=== PATIENT | female | born 1990 | race Caucasian/White ===

== ENCOUNTER 2019-06-21 10:53 | Emergency (ER) | payer OTHER ==
[2019-06-21 11:00] VITALS: BMI 23.0
[2019-06-21] MEDS ORDERED: SODIUM CHLORIDE 1,823 ML IV ONE (11:31)
[2019-06-21] MEDS ORDERED: ACETAMINOPHEN 1000 MG/100 ML VIAL (NON FORMULARY) IVPB ONE (11:33)
[2019-06-21] MEDS ORDERED: ACETAMINOPHEN INJECTION 100 ML IVPB ONE (11:50)
--- NOTE | 2019-06-21 11:51 | PDOC ---
History of Present Illness - General Chief Complaint: Pain, Acute Stated Complaint: HEADACHE Time Seen by Provider: 06/21/19 11:27 - History of Present Illness Initial Comments: 06/21/19 11:50 HPI 28 year with no significant past medical history presents with sudden onset 4 days of cramping LUQ and LLQ abdominal pain radiating to the L flank associated with nonbloody diarrhea and now with 2 days of bilateral temporal headache rated10/10 associated with dizziness and worse with bright lights and loud noises. Denies N/V/C, denies cough, congestion, chest pain, shortness of breath , vaginal discharge, dysuria, hematuria The patient is A0, she is sexually active with her , has an IUD. PMHX: anal pinworms PSHC: PCP: none recently moved, previously cared for at [facility] GENERAL/CONSTITUTIONAL: No fever or chills. No weakness. HEAD, EYES, EARS, NOSE AND THROAT: No change in vision. No ear pain or discharge. No sore throat. CARDIOVASCULAR: No chest pain or shortness of breath RESPIRATORY: No cough, wheezing, or hemoptysis. GASTROINTESTINAL: No nausea, vomiting, diarrhea or constipation. GENITOURINARY: No dysuria, frequency, or change in urination. MUSCULOSKELETAL: No joint or muscle swelling or pain. No neck or back pain. SKIN: No rash NEUROLOGIC: No headache, vertigo, loss of consciousness, or change in strength/ sensation. ENDOCRINE: No increased thirst. No abnormal weight change HEMATOLOGIC/LYMPHATIC: No anemia, easy bleeding, or history of blood clots. ALLERGIC/IMMUNOLOGIC: No hives or skin allergy. PE GENERAL: Awake, alert, and fully oriented, in no acute distress HEAD: No signs of trauma, normocephalic, atraumatic EYES: PERRLA, EOMI, sclera anicteric, conjunctiva clear ENT:oropharynx clear without exudates. Moist mucosa NECK: Normal ROM, supple LUNGS: No distress, speaks full sentences, clear to auscultation bilaterally HEART: Regular rate and rhythm, normal S1 and S2, no murmurs, rubs or gallops, peripheral pulses normal and equal bilaterally. ABDOMEN: Soft, LLQ > LUQ, No guarding, no rebound. No masses BACK: L CVA tenderness EXTREMITIES : Normal inspection, Normal range of motion, no edema. No clubbing or cyanosis. NEUROLOGICAL: Cranial nerves II through XII grossly intact. Normal speech, normal gait, no focal sensorimotor deficits SKIN: Warm, Dry, normal turgor, no rashes or lesions noted PELVIC: mucopurulent discharge, no cervical motion tenderness, no adnexal mass MDM 28 year with no significant past medical history presents with 4 days of cramping LUQ and LLQ abdominal pain radiating to the R flank associated with nonbloody diarrhea and now with 2 days of bilateral temporal headache rated10/ 10 associated with dizziness and worse with bright lights and loud noises. DDX including but not limited to: uti vs pyelo vs infected nephrolithiasis r/o ectopic vs toa W/U: - cbc, cmp, lactic, blood culture, coags, ua TX: - tylenol ivf ED Course: wbc 14 urine with + wbc and leuk esterase CT AP to r/o infected stone CT negative pelvic with discharge treat for pyelo and pid Patient agrees to plan and f/u instructions strict return precautions patient expresses understanding Doretha Warner, PGY2 Emergency Medicine Past History - Past Medical History Allergies/Adverse Reactions: Allergies Allergy/AdvReac Type Severity Reaction Status Date / Time shellfish derived Allergy Verified 06/22/19 12:22 Home Medications: Ambulatory Orders Cephalexin Monohydrate [Keflex -] 500 mg PO Q6H 14 Days #56 capsule 06/21/19 Doxycycline Hyclate 100 mg PO BID 14 Days #28 tablet 06/21/19 COPD: No - Suicide/Smoking/Psychosocial Hx Smoking History: Never smoked *Physical Exam - Vital Signs Last Vital Signs Temp Pulse Resp BP Pulse Ox 102.7 F H 100 H 16 108/52 L 96 06/21/19 10:56 06/21/19 10:56 06/21/19 10:56 06/21/19 10:56 06/21/19 10:56 ED Treatment Course - LABORATORY CBC & Chemistry Diagram: 06/21/19 11:39 06/21/19 11:39 - RADIOLOGY Radiology Studies Ordered: Category Date Time Status CHEST X-RAY PORTABLE* [RAD] Stat Radiology 06/21/19 11:31 Ordered *DC/Admit/Observation/Transfer Diagnosis at time of Disposition: Pyelonephritis, PID (acute pelvic inflammatory disease) - Discharge Dispostion Disposition: HOME Condition at time of disposition: Stable Decision to Admit order: No - Prescriptions Prescriptions: Cephalexin Monohydrate [Keflex -] 500 mg PO Q6H 14 Days #56 capsule Doxycycline Hyclate 100 mg PO BID 14 Days #28 tablet - Referrals - Patient Instructions Printed Discharge Instructions: DI for Kidney Infection Additional Instructions: You were seen in the ED for complaints of lower abdominal pain. In the ED you were evaluated with labwork and imaging. Your results and exam were significant for urinary tract infection and cervical discharge There does not appear to be an acute need for immediate hospitalization. You are advised to follow up with your Primary Care Physician within 1 week. You were given a prescription for Keflex and Doxycycline to be taken as prescribed. Return to the ED immediately if you experience worsening abdominal pain, back pain, nausea, vomiting or worsening fever. - Post Discharge Activity
[2019-06-21 12:24] LABS: BASO % 0.1 % (0-2.0); HEMOGLOBIN 11.7 GM/dL (10.7-15.3); LYMPH % 7.1 % (8-40); MCH 27.3 pg (25.7-33.7); MCHC 32.5 g/dl (32.0-36.0); MEAN CELL VOLUME 83.9 fl (80-96); MEAN PLT VOLUME 8.3 fl (7.5-11.1); NEUT % 86.8 % (42.8-82.8); PLATELET COUNT 251 K/MM3 (134-434); RBC 4.29 M/mm3 (3.60-5.2); RDW 15.2 % (11.6-15.6); WHITE BLOOD COUNT 14.1 K/mm3 (4.0-10.0)
[2019-06-21 12:28] LABS: HYALINE CASTS 26 /lpf (0-8); PH,URINE 7.5 (5.0-8.0); URINE APPEARANCE CLOUDY; URINE BACTERIA 415.3 /hpf (NEGATIVE); URINE BILIRUBIN NEGATIVE (NEGATIVE); URINE COLOR YELLOW; URINE GLUCOSE (UA) NEGATIVE (NEGATIVE); URINE KETONE 2+ (NEGATIVE); URINE LEUK ESTERASE 2+ (NEGATIVE); URINE NITRITE NEGATIVE (NEGATIVE); URINE PROTEIN 1+ (NEGATIVE); URINE RBC 7 /hpf (0-4); URINE WBC 63 /hpf (0-5)
[2019-06-21 12:35] LABS: INR 1.5 (0.83-1.09); PROTHROMBIN TIME (PATIENT) 17.8 SEC (9.7-13.0)
[2019-06-21 12:38] LABS: ACTIVATED PTT 36.1 SECONDS (25.2-36.5)
--- NOTE | 2019-06-21 12:55 | EKG ---
Test Reason : Blood Pressure : / mmHG Vent. Rate : 095 BPM Atrial Rate : 095 BPM P-R Int : 136 ms QRS Dur : 076 ms QT Int : 318 ms P-R-T Axes : 068 087 049 degrees QTc Int : 399 ms NORMAL SINUS RHYTHM NORMAL ECG NO PREVIOUS ECGS AVAILABLE Confirmed by MD Dariana, Ramses ([id number]) on 06/21/2019 12:55:25 PM Referred By: Confirmed By:Ramses Westbrook MD
[2019-06-21 12:59] LABS: ALBUMIN 3.5 g/dl (3.4-5.0); BILIRUBIN,TOTAL 0.3 mg/dL (0.2-1); BLOOD UREA NITROGEN 11.3 mg/dL (7-18); CALCIUM 8.6 mg/dL (8.5-10.1); CREATININE 0.8 mg/dL (0.55-1.3); POTASSIUM 3.9 mmol/L (3.5-5.1); TOT PROT 7.3 g/dl (6.4-8.2)
--- NOTE | 2019-06-21 13:44 | PDOC ---
Documentation entered by Kerline Gupta SCRIBE, acting as scribe for Marlo Lamar MD. Marlo Lamar MD: This documentation has been prepared by the Alonso mendoza Xhesika, SCRIBE, under my direction and personally reviewed by me in its entirety. I confirm that the documentation accurately reflects all work, treatment, procedures, and medical decision making performed by me. Attending Attestation - Resident Resident Name: Doretha Warner - ED Attending Attestation I have performed the following: I have examined & evaluated the patient, The case was reviewed & discussed with the resident, I agree w/resident's findings & plan, Exceptions are as noted - HPI HPI: 06/21/19 12:29 The patient is a 28 year old female with a significant past medical history of anal pinworms who presents to the ED with 4 days of LUQ and LLQ abdominal cramping. The patient states the pain radiates to her L lower flank and is associated with fever, nb diarrhea, 2 days of 10/10 headache and dizziness worsened with bright lights and loud sounds. Patient denies any recent traveling. The patient notes she is A0, is sexually active with her , has an IUD. The patient denies chest pain, shortness of breath. Denies chills, nausea, vomiting, and constipation. Denies dysuria, frequency, urgency and hematuria. Allergies: NKDA. shellfish derived. Past surgical history: - Physicial Exam PE: 06/21/19 12:30 Vitals: Triage Vital signs reviewed General Appearance: no acute distress, well nourished well developed, Head: Atraumatic, normocephalic Neck: Supple;No Nuchal rigidity Chest Wall: Nontender Cardiac: Regular rate and rhythm, no murmurs, no rubs, no gallops, Lungs: Clear to auscultation bilateral, good air movement bilaterally, Abdomen: (+) LLQ abdominal pain. Soft, nondistended, normal bowel sounds Extremities: Full range of motion to all extremities, no cyanosis, clubbing, or edema Skin: Warm and dry, no rashes or lesions, no petechiae Neuro: AOX3; Cranial Nerves 2-12 grossly c intact, Strength intact to all extremities, Sensation intact to all extremities, gait normal Psych: normal mood, normal affect - Medical Decision Making 06/21/19 17:10 The patient is a 28 year old female with a significant past medical history of anal pinworms who presents to the ED with 4 days of LUQ and LLQ abdominal cramping. The patient states the pain radiates to her L lower flank and is associated with fever, nb diarrhea, 2 days of 10/10 headache and dizziness worsened with bright lights and loud sounds. Patient denies any recent traveling. Fever and mild suprapubic discomfort Some low back discomfort Urinalysis positive consistent with UTI likely early pyelonephritis patient well -appearing tolerating fluids able to tolerate medications a CT was ordered to rule out a kidney stone which was negative for stone hydro-or acute other pathology We'll give 1 dose IV ceftriaxone here in the emergency department and discharged on 10-14 day course of Keflex Findings, the need for follow-up and strict return instructions discussed with patient.
[2019-06-21] MEDS ORDERED: CEFTRIAXONE 1 GM/50 ML BAG ONE (16:27)
[2019-06-21] MEDS ORDERED: ACETAMINOPHEN 325 MG TABLET (FP) PO ONE (16:35)
[2019-06-21] MEDS ORDERED: ACETAMINOPHEN 325 MG TABLET (FP) ONE (16:39)
[2019-06-21] MEDS ORDERED: METOCLOPRAMIDE HCL INJECTION 10 MG/2 ML VIAL IVPUSH ONE (17:56)
[2019-06-21] MEDS ORDERED: SODIUM CHLORIDE 1,000 ML IV SCH (18:00)
[2019-06-21] MEDS ORDERED: METOCLOPRAMIDE HCL INJECTION 10 MG/2 ML VIAL ONE (18:45)
[2019-06-21 20:30] VITALS: BP 98/57; PULSE 99; TEMP 100.2
--- NOTE | 2019-06-22 08:47 | PDOC ---
Patient Follow-up (Call Back) - Post ED Follow - Up Condition at time of discharge: Stable Disposition at time of original discharge: HOME Reason for Call Back: Abnwl. Microbiology Signs/Symptoms Improved: Yes (headache, weakness) - Disposition Additional Instructions/Notes: Recieved call from Jannette in [facility] who reports + blood culture results. Patient has gram negative bacillus in aerobic bottle and gram positive cocci in chains in anerobic bottle. Patient called at home and informed of results. Patient states she is experiencing headaches and weakness at present and is taking keflex and doxycycline as prescribed. She was informed to return to emergency room today for further evaluation, she states understanding and states she will return.
== END 2019-06-21 21:10 | disposition home or self-care (01) ==
LOC: JER 10:53
PROC: 3E0337Z Introduction of Electrolytic and Water Balance Substance into Peripheral Vein, Percutaneous Approach (ICD-10-PCS; principal; 2019-06-21)
PROC: 3E033GC Introduction of Other Therapeutic Substance into Peripheral Vein, Percutaneous Approach (ICD-10-PCS; 2019-06-21)
PROC: 3E03329 Introduction of Other Anti-infective into Peripheral Vein, Percutaneous Approach (ICD-10-PCS; 2019-06-21)
PROC: 3E03329 Introduction of Other Anti-infective into Peripheral Vein, Percutaneous Approach (ICD-10-PCS; 2019-06-21)
DX: N73.9 Female pelvic inflammatory disease, unspecified (principal); N12 Tubulo-interstitial nephritis, not specified as acute or chronic
CPT/HCPCS: 36415; 71045-TC-FY; 74176-TC; 80053; 81003; 83605; 84703; 85025; 85610; 85730; 87040; 87086; 87186; 93005; 93010; 99283-25; J0131; J7030

== ENCOUNTER 2019-06-22 12:13 | Inpatient (IN) | payer OTHER ==
--- NOTE | 2019-06-22 13:49 | PDOC ---
*Physical Exam - Vital Signs Last Vital Signs Temp Pulse Resp BP Pulse Ox 100.7 F H 92 H 18 99/57 L 99 06/22/19 12:22 06/22/19 12:22 06/22/19 12:22 06/22/19 12:22 06/22/19 12:22 - Physical Exam Comments: 06/22/19 13:48 The patient was examined by [ERIC Will] under my direct supervision. I personally evaluated the patient. I concur with the above findings and the plan of care. ED Treatment Course - LABORATORY CBC & Chemistry Diagram: 06/22/19 14:10 06/22/19 14:10 *DC/Admit/Observation/Transfer Diagnosis at time of Disposition: Pyelonephritis, Sepsis - Discharge Dispostion Condition at time of disposition: Stable - Referrals - Patient Instructions - Post Discharge Activity
[2019-06-22] MEDS ORDERED: CEFTRIAXONE 1 GM in DEXTROSE 5%-WATER - 100 ML IVPB ONE ×2 (13:59→16:33)
[2019-06-22] MEDS ORDERED: SODIUM CHLORIDE 1,000 ML IV STA (13:59)
[2019-06-22] MEDS ORDERED: ACETAMINOPHEN 1000 MG/100 ML VIAL (NON FORMULARY) IVPB ONE (14:06)
[2019-06-22] MEDS ORDERED: ONDANSETRON 4 MG/2 ML VIAL IVPUSH ONE (14:06)
[2019-06-22] MEDS ORDERED: CEFTRIAXONE 1 GM/50 ML BAG ONE ×2 (14:20→17:09)
[2019-06-22] MEDS ORDERED: ONDANSETRON 4 MG/2 ML VIAL ONE (14:20)
[2019-06-22] MEDS ORDERED: ACETAMINOPHEN INJECTION 100 ML IVPB ONE (14:20)
[2019-06-22 14:49] LABS: ALBUMIN 3.3 g/dl (3.4-5.0); BILIRUBIN,TOTAL 0.4 mg/dL (0.2-1); CALCIUM 8.3 mg/dL (8.5-10.1); CREATININE 0.6 mg/dL (0.55-1.3); POTASSIUM 3.9 mmol/L (3.5-5.1); TOT PROT 7.2 g/dl (6.4-8.2)
--- NOTE | 2019-06-22 15:06 | PDOC ---
History of Present Illness - General Chief Complaint: Pain Stated Complaint: REVISIT Time Seen by Provider: 06/22/19 13:41 History Source: Patient Exam Limitations: No Limitations Past History - Past Medical History Allergies/Adverse Reactions: Allergies Allergy/AdvReac Type Severity Reaction Status Date / Time shellfish derived Allergy Verified 06/22/19 12:22 Home Medications: Ambulatory Orders Cephalexin Monohydrate [Keflex -] 500 mg PO Q6H 14 Days #56 capsule 06/21/19 Doxycycline Hyclate 100 mg PO BID 14 Days #28 tablet 06/21/19 COPD: No - Suicide/Smoking/Psychosocial Hx Smoking History: Never smoked Hx Alcohol Use: No Drug/Substance Use Hx: No *Physical Exam - Vital Signs Last Vital Signs Temp Pulse Resp BP Pulse Ox 100.7 F H 92 H 18 99/57 L 99 06/22/19 12:22 06/22/19 12:22 06/22/19 12:22 06/22/19 12:22 06/22/19 12:22 - Physical Exam General Appearance: No: Apparent Distress Respiratory/Chest: positive: Lungs Clear, Normal Breath Sounds. negative: Respiratory Distress Cardiovascular: positive: Regular Rhythm, Regular Rate, S1, S2. negative: Murmur Gastrointestinal/Abdominal: positive: Normal Bowel Sounds, Soft. negative: Tender, Distended, Guarding, Rebound Musculoskeletal: positive: CVA Tenderness (L) (mild). negative: CVA Tenderness (R) Integumentary: positive: Normal Color Neurologic: positive: Alert, Normal Mood/Affect ED Treatment Course - LABORATORY CBC & Chemistry Diagram: 06/22/19 14:10 06/22/19 14:10 - ADDITIONAL ORDERS Additional order review: Laboratory Results 06/22/19 06/22/19 14:10 14:10 Sodium 140 Potassium 3.9 Chloride 108 H Carbon Dioxide 24 Anion Gap 7 L BUN 10.0 Creatinine 0.6 Est GFR (CKD-EPI)AfAm 143.77 Est GFR (CKD-EPI)NonAf 124.04 Random Glucose 93 Lactic Acid 0.8 Calcium 8.3 L Total Bilirubin 0.4 AST 15 ALT 24 Alkaline Phosphatase 55 Total Protein 7.2 Albumin 3.3 L - Medications Given in the ED: ED Medications Discontinued Medications Generic Name Dose Route Start Last Admin Trade Name Freq PRN Reason Stop Dose Admin Ceftriaxone Sodium 1 gm/ 100 mls @ 200 mls/hr 06/22/19 13:59 06/22/19 14:49 Dextrose IVPB 06/22/19 14:28 200 mls/hr ONCE ONE Administration Medical Decision Making - Medical Decision Making 28 y/o F with no sig pmh was called back to ED for positive blood cultures. Patient was seen in ED yesterday for L sided abdominal pain, slight dysuria, SOLIS and fever. Patient had labs, CXR and CT A/P done. CXR and CT A/P were negative for acute findings. Urine was positive for infection. Patient was given dose of Ceftriaxone yesterday and sent home on Keflex for possible pyelonephritis. Patient states she took the meds twice today but threw it out. Also mentions having fever at home as well. States abdominal pain is better but still with headache. Endorses mild Denies cough, sob, cp, diarrhea, hematuria. Aerobic bottle with Gram neg bacilli Anaerobic bottle with gram positive cocci Urine culture also with lactose fermenting gram neg bacilli Concern for possible contamination given different organisms in blood cultures However, also concern for possible sepsis from pyelo Labs, repeat blood and urine cultures drawn Given IVF and IV Ceftriaxone Plan to admit 06/22/19 15:07 Patient feeling better on reassessment Patient to be admitted 06/22/19 15:47 *DC/Admit/Observation/Transfer Diagnosis at time of Disposition: Pyelonephritis Sepsis Qualifiers: Sepsis type: sepsis due to unspecified organism Sepsis acute organ dysfunction status: without acute organ dysfunction Qualified Code(s): A41.9 - Sepsis, unspecified organism - Discharge Dispostion Condition at time of disposition: Stable Decision to Admit order: Yes - Referrals - Patient Instructions - Post Discharge Activity
[2019-06-22 15:17] LABS: EPI CELLS 10.7 /HPF (0-5/HPF); HYALINE CASTS 11 /lpf (0-8); URINE APPEARANCE CLEAR; URINE BACTERIA 1.4 /hpf (NEGATIVE); URINE BILIRUBIN NEGATIVE (NEGATIVE); URINE COLOR YELLOW; URINE GLUCOSE (UA) NEGATIVE (NEGATIVE); URINE KETONE 3+ (NEGATIVE); URINE LEUK ESTERASE TRACE (NEGATIVE); URINE NITRITE NEGATIVE (NEGATIVE); URINE PROTEIN 1+ (NEGATIVE); URINE RBC 8 /hpf (0-4); URINE UROBILINOGEN 0.2 mg/dL (0.2-1.0); URINE WBC 10 /hpf (0-5)
[2019-06-22 15:26] LABS: BASO % 0.1 % (0-2.0); EOS % 0.1 % (0-4.5); HEMATOCRIT 34.8 % (32.4-45.2); HEMOGLOBIN 11.4 GM/dL (10.7-15.3); LYMPH % 9.4 % (8-40); MCH 27.6 pg (25.7-33.7); MCHC 32.9 g/dl (32.0-36.0); MEAN CELL VOLUME 83.8 fl (80-96); MEAN PLT VOLUME 8.7 fl (7.5-11.1); MONO % 7.4 % (3.8-10.2); PLATELET COUNT 221 K/MM3 (134-434); RBC 4.15 M/mm3 (3.60-5.2); RDW 15.3 % (11.6-15.6); WHITE BLOOD COUNT 11.7 K/mm3 (4.0-10.0)
[2019-06-22] MEDS ORDERED: ONDANSETRON 4 MG/2 ML VIAL IVPUSH PRN (16:31)
[2019-06-22] MEDS ORDERED: IBUPROFEN 800 MG/8 ML IJ IVPB ONE (16:33)
--- NOTE | 2019-06-22 16:36 | HP ---
CHIEF COMPLAINT: dysuria PCP: none HISTORY OF PRESENT ILLNESS: This is a 28 y/o F with no PMH who presents to the ED with dysuria, fevers, chills after receiving a phone call from SALES REPRESENTATIVE in ED regarding her positive UA Cx results and BC results. She had been in the ED yesterday for the same complaints, given 1g ceftriaxone and sent home on ceflex and doxycycline but threw it up right after taking them. Pt endorses having fevers (101 temp), chills, dysuria, increased urgency, frequency for around a week associated with Lt sided CVA dull tenderness (2/10 pain), LLQ sharp abdominal pain (6/10 pain) without any radiation. Pt underwent a pelvic exam in the ED yesterday in which she did not have any adnexal tenderness or cervical motion tenderness. Pt denies any hx of UTI's. Pt has an IUD in place and negative for tests, pt states she is sexually active with only her . Pt admits to also having bitemporal headache associated with photophobia, slight dizziness, no nausea, vomiting, neck stiffness, or vertigo like symptoms associated. Pt has had SOLIS's since her two yrs ago and they were associated with photophobia in the past as well. ER course was notable for: (1) CT abd pelvis: negative for stones, hydronephrosis, or pyelo/cystitis but has ovarian cysts with minimal free fluid likely physiologic. (2) UA leuk est trace, 10 wbc's, nitrites negative, 3+ketones, 1+blood, 1+ protein (3) CXR negative, 14.7 ->11.7 wbc Recent Travel: none PAST MEDICAL HISTORY: none PAST SURGICAL HISTORY: (2009), Social History: Smoking:none Alcohol:none Drugs: none Family History: none Allergies shellfish derived Allergy (Verified 06/22/19 12:22) severe anaphylaxis associated. HOME MEDICATIONS: Home Medications Medication Instructions Recorded Cephalexin Monohydrate [Keflex -] 500 mg PO Q6H 14 Days #56 capsule 06/21/19 Doxycycline Hyclate 100 mg PO BID 14 Days #28 tablet 06/21/19 REVIEW OF SYSTEMS Negative except in HPI PHYSICAL EXAMINATION Vital Signs - 24 hr 06/22/19 06/22/19 12:22 16:02 Temperature 100.7 F H 98.2 F Pulse Rate 92 H Pulse Rate [ 92 H Apical] Respiratory 18 Rate Blood Pressure 99/57 L Blood Pressure 110/72 [Left Arm] O2 Sat by Pulse 99 Oximetry (%) GENERAL: Awake, alert, and fully oriented, in no acute distress. HEAD: Normal with no signs of trauma, severe acne on face. EARS, NOSE, THROAT: Moist mucous membranes. NECK: Normal range of motion, supple without lymphadenopathy, JVD, or masses. LUNGS: Breath sounds equal, clear to auscultation bilaterally. No wheezes, and no crackles. No accessory muscle use. HEART: Regular rate and rhythm, normal S1 and S2 without murmur, rub or gallop. ABDOMEN: Soft, tender to palpation in LLQ, LMQ, negative rovsing/mcburneys/ murphys sign, suprpaubic tenderness, non-distended, normoactive bowel sounds, no guarding, no rebound, no masses. MUSCULOSKELETAL: Lt CVA tenderness. LOWER EXTREMITIES: 2+ pulses, warm, well-perfused. No calf tenderness. No peripheral edema. NEUROLOGICAL: Cranial nerves II-XII intact. Normal speech. Normal gait. PSYCHIATRIC: Cooperative. Good eye contact. Appropriate mood and affect. SKIN: Warm, dry, no rashes or lesions noted. Laboratory Results - last 24 hr 06/22/19 06/22/19 06/22/19 14:10 14:10 14:10 WBC 11.7 H RBC 4.15 Hgb 11.4 Hct 34.8 MCV 83.8 MCH 27.6 MCHC 32.9 RDW 15.3 Plt Count 221 MPV 8.7 Absolute Neuts (auto) 9.7 H Neutrophils % 83.0 H Lymphocytes % 9.4 D Monocytes % 7.4 Eosinophils % 0.1 D Basophils % 0.1 Nucleated RBC % 0 Sodium 140 Potassium 3.9 Chloride 108 H Carbon Dioxide 24 Anion Gap 7 L BUN 10.0 Creatinine 0.6 Est GFR (CKD-EPI)AfAm 143.77 Est GFR (CKD-EPI)NonAf 124.04 Random Glucose 93 Lactic Acid 0.8 Calcium 8.3 L Total Bilirubin 0.4 AST 15 ALT 24 Alkaline Phosphatase 55 Total Protein 7.2 Albumin 3.3 L Urine Color Urine Appearance Urine pH Ur Specific [place] Urine Protein Urine Glucose (UA) Urine Ketones Urine Blood Urine Nitrite Urine Bilirubin Urine Urobilinogen Ur Leukocyte Esterase Urine WBC (Auto) Urine RBC (Auto) Urine Casts (Auto) U Epithel Cells (Auto) Urine Bacteria (Auto) 06/22/19 14:30 WBC RBC Hgb Hct MCV MCH MCHC RDW Plt Count MPV Absolute Neuts (auto) Neutrophils % Lymphocytes % Monocytes % Eosinophils % Basophils % Nucleated RBC % Sodium Potassium Chloride Carbon Dioxide Anion Gap BUN Creatinine Est GFR (CKD-EPI)AfAm Est GFR (CKD-EPI)NonAf Random Glucose Lactic Acid Calcium Total Bilirubin AST ALT Alkaline Phosphatase Total Protein Albumin Urine Color Yellow Urine Appearance Clear Urine pH 6.0 Ur Specific [place] 1.020 Urine Protein 1+ H Urine Glucose (UA) Negative Urine Ketones 3+ H Urine Blood 1+ H Urine Nitrite Negative Urine Bilirubin Negative Urine Urobilinogen 0.2 Ur Leukocyte Esterase Trace Urine WBC (Auto) 10 Urine RBC (Auto) 8 Urine Casts (Auto) 11 U Epithel Cells (Auto) 10.7 Urine Bacteria (Auto) 1.4 ASSESSMENT/PLAN: This is a 28 y/o F with no PMH who presents to the ED with dysuria, fevers, chills after receiving a phone call from SALES REPRESENTATIVE in ED regarding her UA Cx results and BC results. #Sepsis 2/2 Acute pyelonephritis - CVA tenderness on exam, 11.7 wbc initially 14.7 - already received 2g of ceftriaxone - will c/w ceftriaxone 2g - NS @75mL - ID Dr Forrest consulted - repeat UA Cx's and BC's results pending #Headache - given hx of SOLIS's probably migraine - IV motrin 1 dose given for pain management - zofran 4mg q6h PRN for nausea #FEN - NS @75 mL - monitor lytes - regular diet Dispo: admitted to med surg DVT PPX: lovenox 40mg SQ [facility] Visit type - Emergency Visit Emergency Visit: Yes ED Registration Date: 06/22/19 Care time: The patient presented to the Emergency Department on the above date and was hospitalized for further evaluation of their emergent condition. - New Patient This patient is new to me today: Yes Date on this admission: 06/22/19 - Critical Care Critical Care patient: No ATTENDING PHYSICIAN STATEMENT I saw and evaluated the patient. I reviewed the resident's note and discussed the case with the resident. I agree with the resident's findings and plan as documented. SUBJECTIVE: OBJECTIVE: ASSESSMENT AND PLAN:
[2019-06-22] MEDS ORDERED: SODIUM CHLORIDE 1,000 ML IV SCH ×2 (16:45→20:00)
--- NOTE | 2019-06-22 16:54 | PN ---
Teaching Attending Note Name of Resident: Jani Jain ATTENDING PHYSICIAN STATEMENT I saw and evaluated the patient. I reviewed the resident's note and discussed the case with the resident. I agree with the resident's findings and plan as documented. SUBJECTIVE: This is a 28yo female with no PMHx who presents to the ED with dysuria, fevers, chills. Patient had a positive blood cx and the Ed. called the patient back for an admission. OBJECTIVE: Vital Signs Temperature 98.2 F 06/22/19 16:02 Pulse Rate 92 H 06/22/19 16:02 Respiratory Rate 18 06/22/19 12:22 Blood Pressure 110/72 06/22/19 16:02 O2 Sat by Pulse Oximetry (%) 99 06/22/19 12:22 GENERAL: The patient is awake, alert, and fully oriented, in no acute distress. HEAD: Normal with no signs of trauma. EYES: PERRL, EOMI, sclera anicteric, conjunctiva clear. ENT: Ears normal, oropharynx clear without exudates, moist mucous membranes. NECK: Trachea midline, full range of motion, supple. LUNGS: Breath sounds equal, clear to auscultation bilaterally, no wheezes, no crackles, no accessory muscle use. HEART: Regular rate and rhythm, S1, S2 without murmur, rub or gallop. ABDOMEN: Soft, LLQ tenderness on palpation. positive bowel sounds, no guarding, no rebound, no hepatosplenomegaly, no masses. EXTREMITIES: 2+ pulses, warm, well-perfused, no edema. NEUROLOGICAL: Cranial nerves II through XII grossly intact. Normal speech, gait not observed. PSYCH: Normal mood, normal affect. SKIN: Warm, dry, normal turgor, no rashes or lesions noted CBCD WBC 11.7 K/mm3 (4.0-10.0) H 06/22/19 14:10 RBC 4.15 M/mm3 (3.60-5.2) 06/22/19 14:10 Hgb 11.4 GM/dL (10.7-15.3) 06/22/19 14:10 Hct 34.8 % (32.4-45.2) 06/22/19 14:10 MCV 83.8 fl (80-96) 06/22/19 14:10 MCHC 32.9 g/dl (32.0-36.0) 06/22/19 14:10 RDW 15.3 % (11.6-15.6) 06/22/19 14:10 Plt Count 221 K/MM3 (134-434) 06/22/19 14:10 MPV 8.7 fl (7.5-11.1) 06/22/19 14:10 CMP Sodium 140 mmol/L (136-145) 06/22/19 14:10 Potassium 3.9 mmol/L (3.5-5.1) 06/22/19 14:10 Chloride 108 mmol/L (98-107) H 06/22/19 14:10 Carbon Dioxide 24 mmol/L (21-32) 06/22/19 14:10 Anion Gap 7 MMOL/L (8-16) L 06/22/19 14:10 BUN 10.0 mg/dL (7-18) 06/22/19 14:10 Creatinine 0.6 mg/dL (0.55-1.3) 06/22/19 14:10 Random Glucose 93 mg/dL (74-106) 06/22/19 14:10 Calcium 8.3 mg/dL (8.5-10.1) L 06/22/19 14:10 Total Bilirubin 0.4 mg/dL (0.2-1) 06/22/19 14:10 AST 15 U/L (15-37) 06/22/19 14:10 ALT 24 U/L (13-61) 06/22/19 14:10 Alkaline Phosphatase 55 U/L (45-117) 06/22/19 14:10 Total Protein 7.2 g/dl (6.4-8.2) 06/22/19 14:10 Albumin 3.3 g/dl (3.4-5.0) L 06/22/19 14:10 Current Medications Generic Name Dose Route Start Last Admin Trade Name Freq PRN Reason Stop Dose Admin Ceftriaxone Sodium 2 gm/ 100 mls @ 200 mls/hr 06/23/19 10:00 Dextrose IVPB DAILY TAMAR Protocol Sodium Chloride 1,000 mls @ 75 mls/hr 06/22/19 16:45 Normal Saline - IV ASDIR TAMAR Ceftriaxone Sodium 1 gm/ 100 mls @ 200 mls/hr 06/22/19 16:33 Dextrose IVPB 06/22/19 17:02 ONCE ONE Protocol Ondansetron HCl 4 mg 06/22/19 16:31 Zofran Injection IVPUSH Q6H PRN NAUSEA Home Medications Medication Instructions Recorded Cephalexin Monohydrate [Keflex -] 500 mg PO Q6H 14 Days #56 capsule 06/21/19 Doxycycline Hyclate 100 mg PO BID 14 Days #28 tablet 06/21/19 Microbiology 06/21/19 11:39 Urine - Urine Clean Catch Urine Culture - Final Escherichia Coli 06/21/19 11:39 Blood - Peripheral Venous Blood Culture - Preliminary Non Lactose Fermenting Gnb Pending Organism 06/21/19 11:20 Blood - Peripheral Venous Blood Culture - Preliminary Gram Negative Bra[place]#2 Strep Agalactiae Group B Gram Negative [place] Staphylococcus Coagulase Neg ASSESSMENT AND PLAN: This is a 28yo female with no PMHx presents to the ED after being called back for an admission for having positive blood cx. #sepsis with Gram negative bacteremia on IV Rocephin 2gm Dr.hariharan kirill on the case. #Acute Pylonephritis on Rocephin 2gm IV daily, ID on the case, follow the bld cx and ucx #Acute UTI on Rocephin. DVT px: SCDs
--- NOTE | 2019-06-22 17:58 | PN ---
Progress Note (short form) - Note Progress Note: ID consult dictated imp/reccd 28 yo female seen in ED 06/21 with left flank pain, fever and headache had pelvic exam in ED- no CMT, but some discharge and ct scan abd/pelvis-IUD otherwise normal received rocephin in ed, discharged home on keflex and doxycycline had nausea and was unable to eat or take her antibiotics after she went home +fevers less flank pain and suprapubic pain today had positive blood cultures and was called back today POLYMICROBIAL BACTEREMIA- gnr and group b strep continue rocephin repeat blood cultures pending continue IVF pyelonephritis (left) headaches- if they persist after hydration would ask neurology to see-no meningeal signs d/w hospitalist Problem List - Problems (1) Polymicrobial bacterial infection Code(s): A49.9 - BACTERIAL INFECTION, UNSPECIFIED (2) Pyelonephritis Code(s): N12 - TUBULO-INTERSTITIAL NEPHRITIS, NOT SPCF ACUTE OR CHRONIC
--- NOTE | 2019-06-22 18:56 | CONS ---
DATE OF CONSULTATION: 06/22/2019 This is a 28-year-old female with no significant past medical history who on Thursday started having a headache that persisted into Thursday. She started having some cramping abdominal pain, radiating to the left flank and some diarrhea. She presented to the emergency room on June 21 with these symptoms. She also gives a history of having had fever. She was seen and evaluated in the emergency room where she had a temperature of 102. She had a white count 14 with positive white cells, leukocyte esterase, and ketones. She was given Tylenol and IV fluids. She had a CAT scan of her abdomen and pelvis that was negative. She had a pelvic examination that noted some mucopurulent discharge, but no cervical motion tenderness. She received IV ceftriaxone and was discharged on Keflex and doxycycline. She reports after going home that she was unable to take the medications due to persistent nausea. She also reported persistent headache. She received a call back from the ER because blood cultures done on the when she was there, one set is positive for gram-negative rods and group B strep. Urine culture is growing gram-negative bacilli. She notes that the headache is still persistent, but the flank pain and the dysuria have improved. She has some mild photophobia. She has no neck stiffness. She reports the nausea at home, but no vomiting. She received IV fluids and ceftriaxone in the ER and was admitted. PAST MEDICAL HISTORY: Notable for a pinworm infection. She said that she gets occasional rashes. She has 3 children, ages 9, 6, and 2. The first child was section and the other children were vaginal deliveries. She has not been hospitalized. SOCIAL HISTORY: She is from [place]. She is . She lives with her . She has an IUD. She works as a check cashier. There is no history of any cigarette, alcohol, or substance use. ALLERGIES: SHELLFISH. REVIEW OF SYSTEMS: Notable for the nausea, the mild headache, fevers with chills that have improved since admission. PHYSICAL EXAMINATION: General: She is awake and alert. Vital Signs: Her current temperature is 98.2, temperature max today was 100.7. Yesterday her temperature max was 102.7. Her blood pressure is 106/72, respiratory rate 18, pulse rate is 86. She is saturating 100% on room air. HEENT: She is normocephalic. Her eyes are anicteric. Neck: Supple. She has no pharyngitis. She has no meningeal signs. Lungs: Clear to auscultation. Heart: Regular rate and rhythm. Abdomen: She has left CVA tenderness and no suprapubic discomfort to palpation. Otherwise, her abdominal examination is benign. She has no right upper quadrant pain. Extremities: Without edema. She has, on her back, 2 round circles where she did cupping on Thursday. She has no other rash. LABORATORY: White count yesterday was 14.1 and today is 11.7, hemoglobin 11.4, platelets are 221, INR is 1.5. BUN is 10 and creatinine is 0.6 with normal LFTs. test is negative. Urinalysis yesterday had 2+ leukocytes and 63 white cells. Cultures were as previously stated and had been repeated. CAT scan done in the emergency room yesterday was normal. Both kidneys were normal. There was known hydronephrosis. There was no small bowel obstruction. She had an IUD in satisfactory position, normal ovaries with minimal free fluid. IN SUMMARY: This is a nondiabetic, 28-year-old woman, who presented with what sounds like left-sided pyelonephritis, but with polymicrobial bacteremia including group B strep. I would agree with the ceftriaxone and would treat her with fluids. She has a history of atypical migraines and if her headache has not improved by tomorrow would consider a Neurology evaluation. Further recommendations to follow. CORKY IBRAHIM M.D. [id number]
[2019-06-22] MEDS: ENOXAPARIN NA (PORCINE) 40 MG/0.4 ML DISP.SYRIN SQ SCH (19:35)
[2019-06-22 20:12] VITALS: BMI 23.5
[2019-06-23] MEDS: IBUPROFEN 800 MG/8 ML IJ IVPB PRN ×3 (01:20→17:29)
[2019-06-23 07:48] LABS: BASO % 0.1 % (0-2.0); EOS % 0.8 % (0-4.5); HEMATOCRIT 32.5 % (32.4-45.2); HEMOGLOBIN 10.7 GM/dL (10.7-15.3); MCH 27.8 pg (25.7-33.7); MEAN PLT VOLUME 8.5 fl (7.5-11.1); MONO % 8.7 % (3.8-10.2); NEUT % 76.4 % (42.8-82.8); PLATELET COUNT 204 K/MM3 (134-434); RBC 3.87 M/mm3 (3.60-5.2); RDW 15.6 % (11.6-15.6); WHITE BLOOD COUNT 7.3 K/mm3 (4.0-10.0)
[2019-06-23 07:55] LABS: ALBUMIN 2.7 g/dl (3.4-5.0); BILIRUBIN,TOTAL 0.3 mg/dL (0.2-1); BLOOD UREA NITROGEN 9.3 mg/dL (7-18); CREATININE 0.5 mg/dL (0.55-1.3)
[2019-06-23] MEDS ORDERED: DEXTROSE 5%-WATER 100 ML IVPB ONE ×2 (09:40→20:07)
[2019-06-23] MEDS ORDERED: CEFTRIAXONE 2 GM in DEXTROSE 5%-WATER 100 ML IVPB SCH (10:00)
[2019-06-23] MEDS: ENOXAPARIN NA (PORCINE) 40 MG/0.4 ML DISP.SYRIN SQ SCH (10:48)
--- NOTE | 2019-06-23 18:05 | PN ---
Physical Exam: SUBJECTIVE: Patient seen and examined at bedside. No acute events. pain has improved OBJECTIVE: Vital Signs Period Temp Pulse Resp BP Sys/Leonadr Pulse Ox Last 24 Hr 98.1 F-102.1 F 66-97 20-20 96-125/54-69 97-99 GENERAL: The patient is awake, alert, and fully oriented, in no acute distress. HEAD: Normal with no signs of trauma. NECK: stiff but most likely muscular, supple. LUNGS: Breath sounds equal, clear to auscultation bilaterally, no wheezes, no crackles, no accessory muscle use. HEART: Regular rate and rhythm, S1, S2 without murmur, rub or gallop. ABDOMEN: Soft, slightly tender LLQ improving, nondistended, normoactive bowel sounds, no guarding, no rebound. EXTREMITIES: warm, well-perfused, no edema. NEUROLOGICAL: Cranial nerves II through XII grossly intact. Normal speech, gait not observed. PSYCH: Normal mood, normal affect. SKIN: Warm, dry, no rashes or lesions noted Laboratory Results - last 24 hr 06/23/19 06/23/19 06:55 07:00 WBC 7.3 RBC 3.87 Hgb 10.7 Hct 32.5 MCV 84.0 MCH 27.8 MCHC 33.0 RDW 15.6 Plt Count 204 MPV 8.5 Absolute Neuts (auto) 5.6 Neutrophils % 76.4 Lymphocytes % 14.0 D Monocytes % 8.7 Eosinophils % 0.8 D Basophils % 0.1 Nucleated RBC % 0 Sodium 144 Potassium 4.0 Chloride 113 H Carbon Dioxide 25 Anion Gap 7 L BUN 9.3 Creatinine 0.5 L Est GFR (CKD-EPI)AfAm 152.65 Est GFR (CKD-EPI)NonAf 131.71 Random Glucose 83 Calcium 8.0 L Magnesium 2.0 Total Bilirubin 0.3 AST 12 L ALT 21 Alkaline Phosphatase 49 Total Protein 6.0 L Albumin 2.7 L Active Medications Generic Name Dose Route Start Last Admin Trade Name Freq PRN Reason Stop Dose Admin Enoxaparin Sodium 40 mg 06/22/19 17:15 06/23/19 10:48 Lovenox - SQ 40 mg DAILY TAMAR Administration Ceftriaxone Sodium 2 gm/ 100 mls @ 200 mls/hr 06/23/19 10:00 06/23/19 10:49 Dextrose IVPB 200 mls/hr DAILY TAMAR Administration Protocol Ibuprofen 400 mg 06/22/19 19:42 06/23/19 17:29 Caldolor Injection - IVPB 400 mg Q6H PRN Administration PAIN LEVEL 4 - 6 Ondansetron HCl 4 mg 06/22/19 16:31 Zofran Injection IVPUSH Q6H PRN NAUSEA ASSESSMENT/PLAN: This is a 28 y/o F with no PMH who presents to the ED with dysuria, fevers, chills after receiving a phone call from [employer] in ED regarding her UA Cx results and BC results. #Sepsis 2/2 Acute pyelonephritis - CVA tenderness on exam, wbc downtrending to normal 7.3 continue management. - will c/w ceftriaxone 2g - off fluids - ID Dr Forrest consulted- will continue to assess for meningeal signs. - repeat UA Cx's and BC's results pending #Headache - given hx of SOLIS's probably migraine, doubt meningitis at this time. - IV caldolor [id number] - zofran 4mg q6h PRN for nausea #FEN - monitor lytes - regular diet Dispo: admitted to med surg DVT PPX: lovenox 40mg SQ [facility] Visit type - Emergency Visit Emergency Visit: Yes ED Registration Date: 06/22/19 Care time: The patient presented to the Emergency Department on the above date and was hospitalized for further evaluation of their emergent condition. - New Patient This patient is new to me today: No - Critical Care Critical Care patient: No - Discharge Referral Referred to [facility] Med P.C.: No ATTENDING PHYSICIAN STATEMENT I saw and evaluated the patient. I reviewed the resident's note and discussed the case with the resident. I agree with the resident's findings and plan as documented. SUBJECTIVE: OBJECTIVE: ASSESSMENT AND PLAN:
--- NOTE | 2019-06-23 18:18 | PN ---
Progress Note (short form) - Note Progress Note: just spiked to 102.7 has a mild headache still some dysuria and flank pain Vital Signs Period Temp Pulse Resp BP Sys/Leonard Pulse Ox Last 24 Hr 98.1 F-102.1 F 66-97 20-20 96-125/54-69 97-99 cor-rrr lungs clear abd soft,nt- right cvat ext no edema CBC, BMP 06/23/19 06:55 06/23/19 07:00 Microbiology 06/22/19 14:05 Blood - Peripheral Venous Blood Culture - Preliminary NO GROWTH OBTAINED AFTER 24 HOURS, INCUBATION TO CONTINUE FOR 4 DAYS. 06/22/19 14:02 Blood - Peripheral Venous Blood Culture - Preliminary NO GROWTH OBTAINED AFTER 24 HOURS, INCUBATION TO CONTINUE FOR 4 DAYS. 06/22/19 14:30 Urine - Urine Clean Catch Urine Culture - Final NO GROWTH OBTAINED a/p POLYMICROBIAL BACTEREMIA- gnr and group b strep-now pseudomonas and coag neg staph too switch to zosyn, repeat blood cultures now, suspect that blood culture bottle is contaminants?? repeat blood cultures pending continue IVF pyelonephritis (left) headaches- if they persist after hydration would ask neurology to see-no meningeal signs Problem List - Problems (1) Polymicrobial bacterial infection Code(s): A49.9 - BACTERIAL INFECTION, UNSPECIFIED (2) Pyelonephritis Code(s): N12 - TUBULO-INTERSTITIAL NEPHRITIS, NOT SPCF ACUTE OR CHRONIC
[2019-06-23] MEDS ORDERED: PIPERACILLIN/TAZOBACTAM 4.5 GM VIAL IVPB ONE (20:07)
--- NOTE | 2019-06-23 20:08 | PN ---
Teaching Attending Note Name of Resident: Jani Jain ATTENDING PHYSICIAN STATEMENT I saw and evaluated the patient. I reviewed the resident's note and discussed the case with the resident. I agree with the resident's findings and plan as documented. SUBJECTIVE: Patient is feeling better , no further headache. OBJECTIVE: Vital Signs Temperature 101.6 F H 06/23/19 19:10 Pulse Rate 86 06/23/19 16:40 Respiratory Rate 20 06/23/19 16:40 Blood Pressure 125/57 L 06/23/19 16:40 O2 Sat by Pulse Oximetry (%) 99 06/23/19 09:00 GENERAL: The patient is awake, alert, and fully oriented, in no acute distress. HEAD: Normal with no signs of trauma. EYES: PERRL, EOMI, sclera anicteric, conjunctiva clear. ENT: Ears normal, oropharynx clear without exudates, moist mucous membranes. NECK: Trachea midline, full range of motion, supple. LUNGS: Breath sounds equal, clear to auscultation bilaterally, no wheezes, no crackles, no accessory muscle use. HEART: Regular rate and rhythm, S1, S2 without murmur, rub or gallop. ABDOMEN: Soft, LLQ tenderness on palpation. positive bowel sounds, no guarding, no rebound, no hepatosplenomegaly, no masses. EXTREMITIES: 2+ pulses, warm, well-perfused, no edema. NEUROLOGICAL: Cranial nerves II through XII grossly intact. Normal speech, gait not observed. PSYCH: Normal mood, normal affect. SKIN: Warm, dry, normal turgor, no rashes or lesions noted CBCD WBC 7.3 K/mm3 (4.0-10.0) 06/23/19 06:55 RBC 3.87 M/mm3 (3.60-5.2) 06/23/19 06:55 Hgb 10.7 GM/dL (10.7-15.3) 06/23/19 06:55 Hct 32.5 % (32.4-45.2) 06/23/19 06:55 MCV 84.0 fl (80-96) 06/23/19 06:55 MCHC 33.0 g/dl (32.0-36.0) 06/23/19 06:55 RDW 15.6 % (11.6-15.6) 06/23/19 06:55 Plt Count 204 K/MM3 (134-434) 06/23/19 06:55 MPV 8.5 fl (7.5-11.1) 06/23/19 06:55 CMP Sodium 144 mmol/L (136-145) 06/23/19 07:00 Potassium 4.0 mmol/L (3.5-5.1) 06/23/19 07:00 Chloride 113 mmol/L (98-107) H 06/23/19 07:00 Carbon Dioxide 25 mmol/L (21-32) 06/23/19 07:00 Anion Gap 7 MMOL/L (8-16) L 06/23/19 07:00 BUN 9.3 mg/dL (7-18) 06/23/19 07:00 Creatinine 0.5 mg/dL (0.55-1.3) L 06/23/19 07:00 Random Glucose 83 mg/dL (74-106) 06/23/19 07:00 Calcium 8.0 mg/dL (8.5-10.1) L 06/23/19 07:00 Total Bilirubin 0.3 mg/dL (0.2-1) 06/23/19 07:00 AST 12 U/L (15-37) L 06/23/19 07:00 ALT 21 U/L (13-61) 06/23/19 07:00 Alkaline Phosphatase 49 U/L (45-117) 06/23/19 07:00 Total Protein 6.0 g/dl (6.4-8.2) L 06/23/19 07:00 Albumin 2.7 g/dl (3.4-5.0) L 06/23/19 07:00 Current Medications Generic Name Dose Route Start Last Admin Trade Name Freq PRN Reason Stop Dose Admin Enoxaparin Sodium 40 mg 06/22/19 17:15 06/23/19 10:48 Lovenox - SQ 40 mg DAILY TAMAR Administration Piperacillin Sod/Tazobactam 100 mls @ 200 mls/hr 06/23/19 18:30 Sod 4.5 gm/ Dextrose IVPB Q8H-IV TAMAR Protocol Ibuprofen 400 mg 06/22/19 19:42 06/23/19 17:29 Caldolor Injection - IVPB 400 mg Q6H PRN Administration PAIN LEVEL 4 - 6 Ondansetron HCl 4 mg 06/22/19 16:31 Zofran Injection IVPUSH Q6H PRN NAUSEA Home Medications Medication Instructions Recorded Cephalexin Monohydrate [Keflex -] 500 mg PO Q6H 14 Days #56 capsule 06/21/19 Doxycycline Hyclate 100 mg PO BID 14 Days #28 tablet 06/21/19 Microbiology 06/22/19 14:05 Blood - Peripheral Venous Blood Culture - Preliminary NO GROWTH OBTAINED AFTER 24 HOURS, INCUBATION TO CONTINUE FOR 4 DAYS. 06/22/19 14:02 Blood - Peripheral Venous Blood Culture - Preliminary NO GROWTH OBTAINED AFTER 24 HOURS, INCUBATION TO CONTINUE FOR 4 DAYS. 06/22/19 14:30 Urine - Urine Clean Catch Urine Culture - Final NO GROWTH OBTAINED Microbiology 06/21/19 11:39 Urine - Urine Clean Catch Urine Culture - Final Escherichia Coli 06/21/19 11:39 Blood - Peripheral Venous Blood Culture - Preliminary Non Lactose Fermenting Gnb Pending Organism 06/21/19 11:20 Blood - Peripheral Venous Blood Culture - Preliminary Gram Negative Braeden#2 Strep Agalactiae Group B Gram Negative Braeden Staphylococcus Coagulase Neg ASSESSMENT AND PLAN: This is a 28yo female with no PMHx presents to the ED after being called back for an admission for having positive blood cx. #sepsis with Gram negative bacteremia , IV antibiotic changed to IV Zosyn as per ID Dr. Forrest. #Acute Pylonephritis on IV zosyn now, continue to follow the bld cx and ucx #Acute UTI on IV Zosyn # hEADACHE MIGRAINE LIKE WILLCONTINUE iv mOTRIN IS HELPING HER HEADACHE. DVT px: SCDs, LOVENOX
[2019-06-23] MEDS: PIPERACILLIN/TAZOB 4.5 GM 4.5 GM in DEXTROSE 5%-WATER 100 ML IVPB SCH (20:18)
[2019-06-24] MEDS ORDERED: PIPERACILLIN/TAZOBACTAM 4.5 GM VIAL IVPB ONE ×3 (00:19→14:35)
[2019-06-24] MEDS ORDERED: DEXTROSE 5%-WATER 100 ML IVPB ONE ×3 (00:20→14:35)
[2019-06-24] MEDS: PIPERACILLIN/TAZOB 4.5 GM 4.5 GM in DEXTROSE 5%-WATER 100 ML IVPB SCH ×3 (01:53→17:07)
[2019-06-24] MEDS: IBUPROFEN 800 MG/8 ML IJ IVPB PRN ×2 (05:56→12:45)
[2019-06-24] MEDS ORDERED: SODIUM CHLORIDE 1,000 ML IV SCH (08:00)
[2019-06-24] MEDS: ENOXAPARIN NA (PORCINE) 40 MG/0.4 ML DISP.SYRIN SQ SCH (10:20)
--- NOTE | 2019-06-24 16:04 | PN ---
Progress Note (short form) - Note Progress Note: still occasional headache no further fevers still some flank pain and suprapubic discomfort Vital Signs Period Temp Pulse Resp BP Sys/Leonard Pulse Ox Last 24 Hr 98.2 F-102.1 F 62-86 20-20 97-125/57-57 99-99 cor rrr lungs clear abd soft,nt +left cvat some suprapubic discomfort to palpation ext no edema no rash CBC, BMP 06/23/19 06:55 06/23/19 07:00 Microbiology 06/22/19 14:05 Blood - Peripheral Venous Blood Culture - Preliminary NO GROWTH OBTAINED AFTER 48 HOURS, INCUBATION TO CONTINUE FOR 3 DAYS. 06/22/19 14:02 Blood - Peripheral Venous Blood Culture - Preliminary NO GROWTH OBTAINED AFTER 48 HOURS, INCUBATION TO CONTINUE FOR 3 DAYS. 06/22/19 14:30 Urine - Urine Clean Catch Urine Culture - Final NO GROWTH OBTAINED a/p POLYMICROBIAL BACTEREMIA- gnr and group b strep-now pseudomonas and coag neg staph too repeat blood cultures now, suspect that blood culture bottle is contaminants?? multiple organisms in original cultures form 06/21- suspect contaminants ct abd/pelvis - essentailly normal repeat blood cultures pending continue IVF, continue zosyn pyelonephritis (left) headaches- if they persist after hydration would ask neurology to see-no meningeal signs Problem List - Problems (1) Polymicrobial bacterial infection Code(s): A49.9 - BACTERIAL INFECTION, UNSPECIFIED (2) Pyelonephritis Code(s): N12 - TUBULO-INTERSTITIAL NEPHRITIS, NOT SPCF ACUTE OR CHRONIC
--- NOTE | 2019-06-24 16:54 | PN ---
Physical Exam: SUBJECTIVE: Patient seen and examined at bedside, headache worse and continued photophobia. OBJECTIVE: Vital Signs Period Temp Pulse Resp BP Sys/Leonard Pulse Ox Last 24 Hr 97.8 F-101.6 F 62-64 20-20 92-97/53-57 99-99 GENERAL: The patient is awake, alert, and fully oriented, in no acute distress. HEAD: Normal with no signs of trauma. headache b/l temples NECK: Trachea midline, full range of motion, supple. LUNGS: Breath sounds equal, clear to auscultation bilaterally, no wheezes, no crackles, no accessory muscle use. HEART: Regular rate and rhythm, S1, S2 without murmur, rub or gallop. ABDOMEN: Soft, minimally tender LLQ, nondistended, normoactive bowel sounds, no guarding, no rebound. EXTREMITIES: 2+ pulses, warm, well-perfused, no edema. NEUROLOGICAL: Cranial nerves II through XII grossly intact. Normal speech, gait not observed. PSYCH: Normal mood, normal affect. SKIN: Warm, dry, no rashes or lesions noted Active Medications Generic Name Dose Route Start Last Admin Trade Name Freq PRN Reason Stop Dose Admin Enoxaparin Sodium 40 mg 06/22/19 17:15 06/24/19 10:20 Lovenox - SQ 40 mg DAILY TAMAR Administration Piperacillin Sod/Tazobactam 100 mls @ 200 mls/hr 06/23/19 18:30 06/24/19 10: 20 Sod 4.5 gm/ Dextrose IVPB 200 mls/hr Q8H-IV TAMAR Administration Protocol Sodium Chloride 1,000 mls @ 100 mls/hr 06/24/19 08:00 06/24/19 09:00 Normal Saline - IV 06/26/19 17:59 100 mls/hr ASDIR TAMAR Administration Ibuprofen 400 mg 06/22/19 19:42 06/24/19 12:45 Caldolor Injection - IVPB 400 mg Q6H PRN Administration PAIN LEVEL 4 - 6 Ondansetron HCl 4 mg 06/22/19 16:31 Zofran Injection IVPUSH Q6H PRN NAUSEA ASSESSMENT/PLAN: This is a 28 y/o F with no PMH who presents to the ED with dysuria, fevers, chills after receiving a phone call from PUL[employer] in ED regarding her UA Cx results and BC results. #Sepsis 2/2 Acute pyelonephritis - CVA tenderness on exam, wbc downtrending to normal wbc continue management. - on NS 100mL/hr - ID Dr Forrest consulted- repeat BC's results pending, continue zosyn. #Headache - IV caldolor [id number] - zofran 4mg q6h PRN for nausea - consulting Neuro (Dr. Cordoba) due to increased severity of SOLIS's and photophobia #FEN - NS 100mL/hr - monitor lytes - regular diet Dispo: admitted to med surg DVT PPX: lovenox 40mg [facility] Visit type - Emergency Visit Emergency Visit: Yes ED Registration Date: 06/22/19 Care time: The patient presented to the Emergency Department on the above date and was hospitalized for further evaluation of their emergent condition. - New Patient This patient is new to me today: No - Critical Care Critical Care patient: No - Discharge Referral Referred to [facility] Med P.C.: No ATTENDING PHYSICIAN STATEMENT I saw and evaluated the patient. I reviewed the resident's note and discussed the case with the resident. I agree with the resident's findings and plan as documented. SUBJECTIVE: OBJECTIVE: ASSESSMENT AND PLAN:
--- NOTE | 2019-06-24 18:52 | PN ---
Teaching Attending Note Name of Resident: Jani Jain ATTENDING PHYSICIAN STATEMENT I saw and evaluated the patient. I reviewed the resident's note and discussed the case with the resident. I agree with the resident's findings and plan as documented. SUBJECTIVE: Patient is c/o having headache, motrin IV is helping. No fever or chills, no shortness of breath. OBJECTIVE: Vital Signs Temperature 97.8 F 06/24/19 16:51 Pulse Rate 64 06/24/19 17:13 Respiratory Rate 20 06/24/19 17:13 Blood Pressure 95/61 06/24/19 17:13 O2 Sat by Pulse Oximetry (%) 99 06/24/19 09:00 GENERAL: The patient is awake, alert, and fully oriented, in no acute distress. HEAD: Normal with no signs of trauma. EYES: PERRL, EOMI, sclera anicteric, conjunctiva clear. ENT: Ears normal, oropharynx clear without exudates, moist mucous membranes. NECK: Trachea midline, full range of motion, supple. LUNGS: Breath sounds equal, clear to auscultation bilaterally, no wheezes, no crackles, no accessory muscle use. HEART: Regular rate and rhythm, S1, S2 without murmur, rub or gallop. ABDOMEN: Soft, LLQ tenderness on palpation improving, positive bowel sounds, no guarding, no rebound, no hepatosplenomegaly, no masses. EXTREMITIES: 2+ pulses, warm, well-perfused, no edema. NEUROLOGICAL: Cranial nerves II through XII grossly intact. Normal speech, gait not observed. PSYCH: Normal mood, normal affect. SKIN: Warm, dry, normal turgor, no rashes or lesions noted CBCD WBC 7.3 K/mm3 (4.0-10.0) 06/23/19 06:55 RBC 3.87 M/mm3 (3.60-5.2) 06/23/19 06:55 Hgb 10.7 GM/dL (10.7-15.3) 06/23/19 06:55 Hct 32.5 % (32.4-45.2) 06/23/19 06:55 MCV 84.0 fl (80-96) 06/23/19 06:55 MCHC 33.0 g/dl (32.0-36.0) 06/23/19 06:55 RDW 15.6 % (11.6-15.6) 06/23/19 06:55 Plt Count 204 K/MM3 (134-434) 06/23/19 06:55 MPV 8.5 fl (7.5-11.1) 06/23/19 06:55 CMP Sodium 144 mmol/L (136-145) 06/23/19 07:00 Potassium 4.0 mmol/L (3.5-5.1) 06/23/19 07:00 Chloride 113 mmol/L (98-107) H 06/23/19 07:00 Carbon Dioxide 25 mmol/L (21-32) 06/23/19 07:00 Anion Gap 7 MMOL/L (8-16) L 06/23/19 07:00 BUN 9.3 mg/dL (7-18) 06/23/19 07:00 Creatinine 0.5 mg/dL (0.55-1.3) L 06/23/19 07:00 Random Glucose 83 mg/dL (74-106) 06/23/19 07:00 Calcium 8.0 mg/dL (8.5-10.1) L 06/23/19 07:00 Total Bilirubin 0.3 mg/dL (0.2-1) 06/23/19 07:00 AST 12 U/L (15-37) L 06/23/19 07:00 ALT 21 U/L (13-61) 06/23/19 07:00 Alkaline Phosphatase 49 U/L (45-117) 06/23/19 07:00 Total Protein 6.0 g/dl (6.4-8.2) L 06/23/19 07:00 Albumin 2.7 g/dl (3.4-5.0) L 06/23/19 07:00 Current Medications Generic Name Dose Route Start Last Admin Trade Name Freq PRN Reason Stop Dose Admin Enoxaparin Sodium 40 mg 06/22/19 17:15 06/24/19 10:20 Lovenox - SQ 40 mg DAILY TAMAR Administration Piperacillin Sod/Tazobactam 100 mls @ 200 mls/hr 06/23/19 18:30 06/24/19 17: 07 Sod 4.5 gm/ Dextrose IVPB 200 mls/hr Q8H-IV TAMAR Administration Protocol Sodium Chloride 1,000 mls @ 100 mls/hr 06/24/19 08:00 06/24/19 09:00 Normal Saline - IV 06/26/19 17:59 100 mls/hr ASDIR TAMAR Administration Ibuprofen 400 mg 06/22/19 19:42 06/24/19 12:45 Caldolor Injection - IVPB 400 mg Q6H PRN Administration PAIN LEVEL 4 - 6 Ondansetron HCl 4 mg 06/22/19 16:31 Zofran Injection IVPUSH Q6H PRN NAUSEA Home Medications Medication Instructions Recorded Cephalexin Monohydrate [Keflex -] 500 mg PO Q6H 14 Days #56 capsule 06/21/19 Doxycycline Hyclate 100 mg PO BID 14 Days #28 tablet 06/21/19 Microbiology 06/22/19 14:05 Blood - Peripheral Venous Blood Culture - Preliminary NO GROWTH OBTAINED AFTER 48 HOURS, INCUBATION TO CONTINUE FOR 3 DAYS. 06/22/19 14:02 Blood - Peripheral Venous Blood Culture - Preliminary NO GROWTH OBTAINED AFTER 48 HOURS, INCUBATION TO CONTINUE FOR 3 DAYS. 06/22/19 14:30 Urine - Urine Clean Catch Urine Culture - Final NO GROWTH OBTAINED Microbiology 06/21/19 11:39 Urine - Urine Clean Catch Urine Culture - Final Escherichia Coli 06/21/19 11:39 Blood - Peripheral Venous Blood Culture - Preliminary Non Lactose Fermenting Gnb Pending Organism 06/21/19 11:20 Blood - Peripheral Venous Blood Culture - Preliminary Gram Negative Braeden#2 Strep Agalactiae Group B Gram Negative Braeden Staphylococcus Coagulase Neg ASSESSMENT AND PLAN: This is a 28yo female with no PMHx presents to the ED after being called back for an admission for having positive blood cx. #sepsis with Gram negative bacteremia ,IV antibiotic changed to IV Zosyn as per ID Dr. Forrest. CONTINUE IVF INCREASED TO 150CC/HR #Acute Pylonephritis on IV zosyn now, continue to follow the bld cx and ucx #Acute UTI on IV Zosyn #HEADACHE ( MIGRAINE LIKE) NO HX OF MIGRAINE WILL CONTINUE iv mOTRIN IS HELPING HER HEADACHE. WILL ADD 2L OXYGEN . will get neuro consult dr morse to evaluate the patient. DVT px: SCDs, LOVENOX
[2019-06-25] MEDS ORDERED: PIPERACILLIN/TAZOBACTAM 4.5 GM VIAL IVPB ONE ×3 (00:56→17:14)
[2019-06-25] MEDS ORDERED: DEXTROSE 5%-WATER 100 ML IVPB ONE ×3 (00:57→17:14)
[2019-06-25] MEDS: PIPERACILLIN/TAZOB 4.5 GM 4.5 GM in DEXTROSE 5%-WATER 100 ML IVPB SCH ×3 (01:07→17:23)
[2019-06-25] MEDS: IBUPROFEN 800 MG/8 ML IJ IVPB PRN ×2 (01:07→09:45)
[2019-06-25] MEDS: SODIUM CHLORIDE 1,000 ML IV SCH ×3 (01:08→08:59)
[2019-06-25 08:30] LABS: BASO % 0.2 % (0-2.0); EOS % 2.4 % (0-4.5); HEMATOCRIT 29.5 % (32.4-45.2); HEMOGLOBIN 9.8 GM/dL (10.7-15.3); LYMPH % 42.2 % (8-40); MCH 27.9 pg (25.7-33.7); MCHC 33.3 g/dl (32.0-36.0); MEAN CELL VOLUME 83.7 fl (80-96); MEAN PLT VOLUME 8.6 fl (7.5-11.1); MONO % 9.3 % (3.8-10.2); NEUT % 45.9 % (42.8-82.8); PLATELET COUNT 221 K/MM3 (134-434); RBC 3.52 M/mm3 (3.60-5.2); RDW 15.5 % (11.6-15.6); WHITE BLOOD COUNT 3.4 K/mm3 (4.0-10.0)
[2019-06-25 08:57] LABS: ALBUMIN 2.6 g/dl (3.4-5.0); BILIRUBIN,TOTAL 0.1 mg/dL (0.2-1); BLOOD UREA NITROGEN 8.8 mg/dL (7-18); CALCIUM 8.2 mg/dL (8.5-10.1); CREATININE 0.5 mg/dL (0.55-1.3); POTASSIUM 3.9 mmol/L (3.5-5.1); TOT PROT 5.8 g/dl (6.4-8.2)
[2019-06-25] MEDS: ENOXAPARIN NA (PORCINE) 40 MG/0.4 ML DISP.SYRIN SQ SCH (09:01)
--- NOTE | 2019-06-25 15:37 | PN ---
Progress Note (short form) - Note Progress Note: Patient is feeling better today. Vital Signs Temperature 98.1 F 06/25/19 06:36 Pulse Rate 55 L 06/25/19 06:36 Respiratory Rate 20 06/25/19 06:36 Blood Pressure 105/58 L 06/25/19 06:36 O2 Sat by Pulse Oximetry (%) 99 06/25/19 09:00 GENERAL: The patient is awake, alert, and fully oriented, in no acute distress. HEAD: Normal with no signs of trauma. EYES: PERRL, EOMI, sclera anicteric, conjunctiva clear. ENT: Ears normal, oropharynx clear without exudates, moist mucous membranes. NECK: Trachea midline, full range of motion, supple. LUNGS: Breath sounds equal, clear to auscultation bilaterally, no wheezes, no crackles, no accessory muscle use. HEART: Regular rate and rhythm, S1, S2 without murmur, rub or gallop. ABDOMEN: Soft, LLQ tenderness on palpation improving, positive bowel sounds, no guarding, no rebound, no hepatosplenomegaly, no masses. EXTREMITIES: 2+ pulses, warm, well-perfused, no edema. NEUROLOGICAL: Cranial nerves II through XII grossly intact. Normal speech, gait not observed. PSYCH: Normal mood, normal affect. SKIN: Warm, dry, normal turgor, no rashes or lesions noted CBCD WBC 3.4 K/mm3 (4.0-10.0) L 06/25/19 07:15 RBC 3.52 M/mm3 (3.60-5.2) L 06/25/19 07:15 Hgb 9.8 GM/dL (10.7-15.3) L 06/25/19 07:15 Hct 29.5 % (32.4-45.2) L 06/25/19 07:15 MCV 83.7 fl (80-96) 06/25/19 07:15 MCHC 33.3 g/dl (32.0-36.0) 06/25/19 07:15 RDW 15.5 % (11.6-15.6) 06/25/19 07:15 Plt Count 221 K/MM3 (134-434) 06/25/19 07:15 MPV 8.6 fl (7.5-11.1) 06/25/19 07:15 CMP Sodium 145 mmol/L (136-145) 06/25/19 07:15 Potassium 3.9 mmol/L (3.5-5.1) 06/25/19 07:15 Chloride 113 mmol/L (98-107) H 06/25/19 07:15 Carbon Dioxide 26 mmol/L (21-32) 06/25/19 07:15 Anion Gap 6 MMOL/L (8-16) L 06/25/19 07:15 BUN 8.8 mg/dL (7-18) 06/25/19 07:15 Creatinine 0.5 mg/dL (0.55-1.3) L 06/25/19 07:15 Random Glucose 88 mg/dL (74-106) 06/25/19 07:15 Calcium 8.2 mg/dL (8.5-10.1) L 06/25/19 07:15 Total Bilirubin 0.1 mg/dL (0.2-1) L 06/25/19 07:15 AST 17 U/L (15-37) 06/25/19 07:15 ALT 22 U/L (13-61) 06/25/19 07:15 Alkaline Phosphatase 43 U/L (45-117) L 06/25/19 07:15 Total Protein 5.8 g/dl (6.4-8.2) L 06/25/19 07:15 Albumin 2.6 g/dl (3.4-5.0) L 06/25/19 07:15 Current Medications Generic Name Dose Route Start Last Admin Trade Name Freq PRN Reason Stop Dose Admin Enoxaparin Sodium 40 mg 06/22/19 17:15 06/25/19 09:01 Lovenox - SQ 40 mg DAILY TAMAR Administration Piperacillin Sod/Tazobactam 100 mls @ 200 mls/hr 06/23/19 18:30 06/25/19 09: 01 Sod 4.5 gm/ Dextrose IVPB 200 mls/hr Q8H-IV TAMAR Administration Protocol Ibuprofen 400 mg 06/22/19 19:42 06/25/19 09:45 Caldolor Injection - IVPB 400 mg Q6H PRN Administration PAIN LEVEL 4 - 6 Ondansetron HCl 4 mg 06/22/19 16:31 Zofran Injection IVPUSH Q6H PRN NAUSEA Home Medications Medication Instructions Recorded Cephalexin Monohydrate [Keflex -] 500 mg PO Q6H 14 Days #56 capsule 06/21/19 Doxycycline Hyclate 100 mg PO BID 14 Days #28 tablet 06/21/19 A/P: This is a 28yo female with no PMHx presents to the ED after being called back for an admission for having positive blood cx. #sepsis with Gram negative bacteremia ,continue IV Zosyn as per ID Dr. Forrest. CONTINUE IVF INCREASED TO 150CC/HR #Acute Pylonephritis on IV zosyn now, continue to follow the bld cx and ucx #Acute UTI on IV Zosyn #HEADACHE ( MIGRAINE LIKE) NO HX OF MIGRAINE WILL CONTINUE iv mOTRIN IS HELPING HER HEADACHE. WILL ADD 2L OXYGEN . will get neuro consult dr morse to evaluate the patient. DVT px: SCDs, LOVENOX Visit type - Emergency Visit Emergency Visit: Yes ED Registration Date: 06/22/19 Care time: The patient presented to the Emergency Department on the above date and was hospitalized for further evaluation of their emergent condition. - New Patient This patient is new to me today: No - Critical Care Critical Care patient: No - Discharge Referral Referred to [facility] Med [facility].C[facility] No
[2019-06-26] MEDS ORDERED: PIPERACILLIN/TAZOBACTAM 4.5 GM VIAL IVPB ONE ×2 (01:41→09:43)
[2019-06-26] MEDS ORDERED: DEXTROSE 5%-WATER 100 ML IVPB ONE ×2 (01:41→09:43)
[2019-06-26] MEDS: PIPERACILLIN/TAZOB 4.5 GM 4.5 GM in DEXTROSE 5%-WATER 100 ML IVPB SCH ×2 (01:56→10:00)
[2019-06-26] MEDS: IBUPROFEN 800 MG/8 ML IJ IVPB PRN (07:01)
[2019-06-26] MEDS: ENOXAPARIN NA (PORCINE) 40 MG/0.4 ML DISP.SYRIN SQ SCH (10:06)
--- NOTE | 2019-06-26 10:28 | PN ---
Progress Note (short form) - Note Progress Note: feels well no headaches no flank or suprapubic pain no fevers Vital Signs Period Temp Pulse Resp BP Sys/Leonard Pulse Ox Last 24 Hr 98.2 F-98.6 F 54-61 20-20 99-112/43-72 100 cor-rrr lungs clear abd soft,nt no cvat or suprapubic pain ext no edema CBC, BMP 06/25/19 07:15 06/25/19 07:15 Microbiology 06/23/19 21:45 Blood - Peripheral Venous Blood Culture - Preliminary NO GROWTH OBTAINED AFTER 48 HOURS, INCUBATION TO CONTINUE FOR 3 DAYS. 06/23/19 21:40 Blood - Peripheral Venous Blood Culture - Preliminary NO GROWTH OBTAINED AFTER 48 HOURS, INCUBATION TO CONTINUE FOR 3 DAYS. 06/22/19 14:05 Blood - Peripheral Venous Blood Culture - Preliminary NO GROWTH OBTAINED AFTER 72 HOURS, INCUBATION TO CONTINUE FOR 2 DAYS. 06/22/19 14:02 Blood - Peripheral Venous Blood Culture - Preliminary NO GROWTH OBTAINED AFTER 72 HOURS, INCUBATION TO CONTINUE FOR 2 DAYS. 06/22/19 14:30 Urine - Urine Clean Catch Urine Culture - Final NO GROWTH OBTAINED a/p P pyelonephritis (left)-day #5 antibiotics-urine culture ecoli day #5 zosyn blood cultures drawn on 06/21 with multiple organisms including staph epi- not c/ w clinical infection- ?gross contamination-multiple isolates!-was this someone else's cultures, repeat blood cultures are all negative ct scan abd pelvis normal can switch to po bactrim 1 ds po bid for 7 days headaches- if they persist would ask neurology to see-no meningeal signs Problem List - Problems (1) Polymicrobial bacterial infection Code(s): A49.9 - BACTERIAL INFECTION, UNSPECIFIED (2) Pyelonephritis Code(s): N12 - TUBULO-INTERSTITIAL NEPHRITIS, NOT SPCF ACUTE OR CHRONIC
[2019-06-26 10:52] VITALS: BP 97/54; PULSE 54; TEMP 97.9
--- NOTE | 2019-06-26 11:29 | PN ---
Teaching Attending Note Name of Resident: Jani Jain ATTENDING PHYSICIAN STATEMENT I saw and evaluated the patient. I reviewed the resident's note and discussed the case with the resident. I agree with the resident's findings and plan as documented. SUBJECTIVE: Patient is comfortable with no acute distress. wants to go home. OBJECTIVE: Vital Signs Temperature 97.9 F 06/26/19 09:00 Pulse Rate 54 L 06/26/19 09:00 Respiratory Rate 20 06/26/19 09:00 Blood Pressure 97/54 L 06/26/19 09:00 O2 Sat by Pulse Oximetry (%) 100 06/26/19 09:00 GENERAL: The patient is awake, alert, and fully oriented, in no acute distress. HEAD: Normal with no signs of trauma. EYES: PERRL, EOMI, sclera anicteric, conjunctiva clear. ENT: Ears normal, oropharynx clear without exudates, moist mucous membranes. NECK: Trachea midline, full range of motion, supple. LUNGS: Breath sounds equal, clear to auscultation bilaterally, no wheezes, no crackles, no accessory muscle use. HEART: Regular rate and rhythm, S1, S2 without murmur, rub or gallop. ABDOMEN: Soft, NT, no cva tenderness, positive bowel sounds, no guarding, no rebound, no hepatosplenomegaly, no masses. EXTREMITIES: 2+ pulses, warm, well-perfused, no edema. NEUROLOGICAL: Cranial nerves II through XII grossly intact. Normal speech, gait not observed. PSYCH: Normal mood, normal affect. SKIN: Warm, dry, normal turgor, no rashes or lesions noted CBCD WBC 3.4 K/mm3 (4.0-10.0) L 06/25/19 07:15 RBC 3.52 M/mm3 (3.60-5.2) L 06/25/19 07:15 Hgb 9.8 GM/dL (10.7-15.3) L 06/25/19 07:15 Hct 29.5 % (32.4-45.2) L 06/25/19 07:15 MCV 83.7 fl (80-96) 06/25/19 07:15 MCHC 33.3 g/dl (32.0-36.0) 06/25/19 07:15 RDW 15.5 % (11.6-15.6) 06/25/19 07:15 Plt Count 221 K/MM3 (134-434) 06/25/19 07:15 MPV 8.6 fl (7.5-11.1) 06/25/19 07:15 CMP Sodium 145 mmol/L (136-145) 06/25/19 07:15 Potassium 3.9 mmol/L (3.5-5.1) 06/25/19 07:15 Chloride 113 mmol/L (98-107) H 06/25/19 07:15 Carbon Dioxide 26 mmol/L (21-32) 06/25/19 07:15 Anion Gap 6 MMOL/L (8-16) L 06/25/19 07:15 BUN 8.8 mg/dL (7-18) 06/25/19 07:15 Creatinine 0.5 mg/dL (0.55-1.3) L 06/25/19 07:15 Random Glucose 88 mg/dL (74-106) 06/25/19 07:15 Calcium 8.2 mg/dL (8.5-10.1) L 06/25/19 07:15 Total Bilirubin 0.1 mg/dL (0.2-1) L 06/25/19 07:15 AST 17 U/L (15-37) 06/25/19 07:15 ALT 22 U/L (13-61) 06/25/19 07:15 Alkaline Phosphatase 43 U/L (45-117) L 06/25/19 07:15 Total Protein 5.8 g/dl (6.4-8.2) L 06/25/19 07:15 Albumin 2.6 g/dl (3.4-5.0) L 06/25/19 07:15 Current Medications Generic Name Dose Route Start Last Admin Trade Name Freq PRN Reason Stop Dose Admin Enoxaparin Sodium 40 mg 06/22/19 17:15 06/26/19 10:06 Lovenox - SQ 40 mg DAILY TAMAR Administration Piperacillin Sod/Tazobactam 100 mls @ 200 mls/hr 06/23/19 18:30 06/26/19 10: 00 Sod 4.5 gm/ Dextrose IVPB 200 mls/hr Q8H-IV TAMAR Administration Protocol Ibuprofen 400 mg 06/22/19 19:42 06/26/19 07:01 Caldolor Injection - IVPB 400 mg Q6H PRN Administration PAIN LEVEL 4 - 6 Ondansetron HCl 4 mg 06/22/19 16:31 Zofran Injection IVPUSH Q6H PRN NAUSEA Home Medications Medication Instructions Recorded Sulfamethoxazole/Trimethoprim 1 each PO BID #14 tablet 06/26/19 [Bactrim Ds Tablet] ASSESSMENT AND PLAN: This is a 28yo female with no PMHx presents to the ED after being called back for an admission for having positive blood cx. #s/p sepsis with Gram negative bacteremia ,continue IV Zosyn as per ID Dr. Forrest. will discharge the patient home on Bactrim DS for 7 more days , adviced to drink plenty of fluid 2-3 litter while on Bactrim BDS. #Acute Pylonephritis on IV zosyn now, no further pain , continue with Bactrim as per ID, for 7 more days, follow up with the office in a week. #Acute UTI on bactrim ds upon discharge s/p IV Zosyn #HEADACHE ( MIGRAINE LIKE) NO HX OF MIGRAINE WILL CONTINUE s/p iv mOTRIN , improved , follow up with neuro if needed, follow up with
--- NOTE | 2019-06-26 11:41 | DS ---
Physical Exam: SUBJECTIVE: Patient seen and examined at bedside. No acute events. OBJECTIVE: Vital Signs Period Temp Pulse Resp BP Sys/Leonard Pulse Ox Last 24 Hr 97.9 F-98.6 F 54-61 20-20 97-112/43-72 100-100 PHYSICAL EXAM GENERAL: The patient is awake, alert, and fully oriented, in no acute distress. HEAD: Normal with no signs of trauma. EYES: PERRL, extraocular movements grossly intact, sclera anicteric, conjunctiva clear. ENT: Ears normal, nares patent, oropharynx clear without exudates, moist mucous membranes. NECK: supple. LUNGS: Breath sounds equal, clear to auscultation bilaterally, no wheezes, no crackles, no accessory muscle use. HEART: Regular rate and rhythm, S1, S2 without murmur, rub or gallop. ABDOMEN: Soft, nontender, nondistended, no guarding, no rebound. EXTREMITIES: warm, well-perfused, no edema. NEUROLOGICAL: Cranial nerves II through XII grossly intact. Normal speech, gait not observed. PSYCH: Normal mood, normal affect. SKIN: Warm, dry, no rashes or lesions noted. LABS HOSPITAL COURSE: Date of Admission:06/22/19 This is a 28 y/o F w no PMH admitted for acute pyelonephritis 2/2 sepsis. She was initially placed on ceftriaxone but she spiked a fever while on it and it was switched to zosyn by dr valdez. She had headaches while here associated with photophobia so we had neuro evaluate her and want her to take nortriptyline ppx for migraines and fioricet as needed. Pt is to f/u with neuro in 1 week (Dr. Dumont). Pt was also d/c on bactrim for 10 days for her cystitis. Date of Discharge: 06/26/19 Minutes to complete discharge: 35 Discharge Summary Reason For Visit: PYELONEPHRITIS, SEPSIS Condition: Stable - Instructions Diet, Activity, Other Instructions: You were admitted for urinary tract infection and kidney infection. You were placed on antibiotics and you are now stable. You also had headaches while you were here and they are now controlled. Medication to continue at home Bactrim DS 1 tablet by mouth twice a day for 7 days (ending on 07/03/19) , drink at least 2-3 litters of water daily with this antibiotic Nortryptyline 10mg by mouth daily for your headaches. Fioricet as needed - You should follow up with a neurologist for your headache in 1 week (Dr. Cordoba) to evaluate your headaches. - You should follow up with your primary care doctor in 1 week. - Return to the emergency room if you experience and worsening of your current symptoms or: chest pain, shortness of breath, fevers, dizziness, chills. Referrals: Jesus Alberto Domingo MD [Staff Physician] - 1 Week Rajinder Cordoba DO [Staff Physician] - 1 Week Disposition: HOME - Home Medications Comprehensive Discharge Medication List: Ambulatory Orders Sulfamethoxazole/Trimethoprim [Bactrim Ds Tablet] 1 each PO BID #14 tablet 06/26 This patient is new to me today: No Emergency Visit: Yes ED Registration Date: 06/22/19 Care time: The patient presented to the Emergency Department on the above date and was hospitalized for further evaluation of their emergent condition. Critical Care patient: No - Discharge Referral Referred to [facility] No ATTENDING PHYSICIAN STATEMENT I saw and evaluated the patient. I reviewed the resident's note and discussed the case with the resident. I agree with the resident's findings and plan as documented. SUBJECTIVE: OBJECTIVE: ASSESSMENT AND PLAN:
--- NOTE | 2019-06-26 12:49 | CON.NEURO ---
Consult Consult Specialty:: neurology Reason for Consultation:: HEADACHE - History of Present Illness Chief Complaint: SOLIS History of Present Illness: This is a 28 y/o F with no PMH who presents to the ED with dysuria, fevers, chills after receiving a phone call from [employer] in ED regarding her positive UA Cx results and BC results. She had been in the ED for the same complaints, given 1g ceftriaxone and sent home on ceflex and doxycycline but threw it up right after taking them. She was tx for pyelonephritis w abx; she also has had headache , bitemporal ands severe associated w photo and phonophobia ; she reports h/o headache for the past 2 years , this time more intense , lasted 3 hours and intermittent ; now her headache is resolved , ready for discharge , however no CT head was performed prior to my visit. - Past Medical History ...LMP: 06/09/19 ...: No - Alcohol/Substance Use Hx Alcohol Use: No - Smoking History Smoking history: Never smoked Have you smoked in the past 12 months: No Home Medications - Allergies Allergies/Adverse Reactions: Allergies Allergy/AdvReac Type Severity Reaction Status Date / Time shellfish derived Allergy Verified 06/22/19 12:22 - Home Medications Home Medications: Ambulatory Orders Sulfamethoxazole/Trimethoprim [Bactrim Ds Tablet] 1 each PO BID #14 tablet 06/26 Review of Systems - Review of Systems Constitutional: reports: No Symptoms Eyes: reports: No Symptoms HENT: reports: No Symptoms Neck: reports: No Symptoms Cardiovascular: reports: No Symptoms Respiratory: reports: No Symptoms Gastrointestinal: reports: No Symptoms Musculoskeletal: reports: No Symptoms Integumentary: reports: No Symptoms Endocrine: reports: No Symptoms Physical Exam-Neuro Vital Signs: Vital Signs Temperature 97.9 F 06/26/19 09:00 Pulse Rate 54 L 06/26/19 09:00 Respiratory Rate 20 06/26/19 09:00 Blood Pressure 97/54 L 06/26/19 09:00 O2 Sat by Pulse Oximetry (%) 100 06/26/19 09:00 Constitutional: Yes: Well Nourished, No Distress, Calm Neck: Yes: Supple Cardiovascular: Yes: Regular Rate and Rhythm Respiratory: Yes: CTA Bilaterally Musculoskeletal: Yes: WNL Edema: No Psychiatric: Yes: WNL, Alert, Oriented Labs: CBC, BMP 06/25/19 07:15 08/17/19 07:15 - Neuro Exam Level Of Consciousness: Yes: Alert, Oriented to Person, Oriented to Place, Oriented to Time Eyes: Yes: PERRLA Speech: WNL Cranial Nerves II-XII Intact: Yes Gag: Present DTR's: 2+ Left Bicep, 2+ Right Bicep, 2+ Left Tricep, 2+ Right Tricep, 2+ Left Brachioradialis, 2+ Right Brachioradialis, 2+ Left Achilles, 2+ Right Achilles Imaging - Results Cat Scan: Image Reviewed (No acute finding , bleed or hypoattenuation .) Problem List - Problems (1) Migraine aura without headache Code(s): G43.109 - MIGRAINE WITH AURA, NOT INTRACTABLE, W/O STATUS MIGRAINOSUS (2) Pyelonephritis Code(s): N12 - TUBULO-INTERSTITIAL NEPHRITIS, NOT SPCF ACUTE OR CHRONIC Assessment/Plan 28 y/o F, w h/o migraine headache p/w UTI and headache ;was txed for pyelonephritis , her SOLIS is resolved ; onexam no focal deficit ; CTH wo was reviewed by me no acute finding ; no sign or sym of meningitis or GEAR STRAIGHTENER infection. Migraine SOLIS : I suggest starting preventive medication for migraine headache ; Nortriptyline 10 mg qd fioricet as needed D/c home after official CT report F/U as OP. Health maintenance per primary team. Angely Braga MD
== END 2019-06-26 15:54 | disposition home or self-care (01) | DRG 720 ==
LOC: JER 12:13 → JERBED 15:48 → J8W 18:32
PROVIDERS: ADMIT Internal Medicine; ATTEND Internal Medicine
DX: A41.50 Gram-negative sepsis, unspecified (principal); N39.0 Urinary tract infection, site not specified; H53.149 Visual discomfort, unspecified; G43.909 Migraine, unspecified, not intractable, without status migrainosus; N10 Acute pyelonephritis
CPT/HCPCS: 36415; 70450-TC; 71045-TC-FY; 74176-TC; 80053; 81003; 83605; 83735; 84703; 85025; 85610; 85730; 87040; 87086; 87186; 93005; 93010; 99283-25; J0131; J7030

== ENCOUNTER 2019-12-19 19:43 | Emergency (ER) | payer OTHER ==
[2019-12-19 20:11] VITALS: BP 101/52; PULSE 66; TEMP 98.1; BMI 24.3
--- NOTE | 2019-12-20 00:51 | PDOC ---
History of Present Illness - General Chief Complaint: Pain Stated Complaint: ABD PAIN & HEADACHE Time Seen by Provider: 12/20/19 00:18 - History of Present Illness Initial Comments: 12/20/19 00:51 29 yo F, , PMH , recent admission in June 2019 with UTI sepsis, found to have bacteremia, presenting with suprapubic abdominal pain. States that this pain has been present for the past two months and is associated with radiation into her lower back, L>R. However, she does report that it is less intense than her [place] episode. She is here today not because the pain is worsening or changing in quality, but because she was tired of having it. Further complains of R sided headache which is worsened by light and sound, similar to what she endorsed having last admission. At that time there was concern for migraines and patient was referred for outpatient therapy, but did not end up going. Also endorses chills. Denies urinary frequency, dysuria, fevers, vaginal bleeding, unusual discharge. LMP 11/15/2019. Has copper IUD in place for the past year; reports irregular periods that are sometimes heavy, sometimes light. Past History - Past Medical History Allergies/Adverse Reactions: Allergies Allergy/AdvReac Type Severity Reaction Status Date / Time shellfish derived Allergy Verified 06/28/19 15:38 Home Medications: Ambulatory Orders Nortriptyline HCl [Pamelor -] 10 mg PO DAILY #14 capsule 06/26/19 Sulfamethoxazole/Trimethoprim [Bactrim Ds Tablet] 1 each PO BID #14 tablet 06/26 Doxycycline Hyclate 100 mg PO BID 14 Days #28 capsule 12/20/19 Anemia: Yes COPD: No - Psycho Social/Smoking Cessation Hx Smoking History: Never smoked Have you smoked in the past 12 months: No Hx Alcohol Use: No Drug/Substance Use Hx: No Substance Use Type: None Hx Substance Use Treatment: No Review of Systems - Review of Systems Comments:: 12/20/19 00:55 GENERAL/CONSTITUTIONAL: endorses chills. Denies fever, diaphoresis, generalized weakness, malaise, loss of appetite, weight change HEAD, EYES, EARS, NOSE AND THROAT: denies rhinorrhea, nasal congestion, throat pain, throat swelling, difficulty swallowing, mouth swelling, ear pain, eye pain , visual changes NEUROLOGIC: endorses R sided headache. Denies focal weakness or paresthesias, dizziness, unsteady gait, seizure, mental status changes, bladder or bowel incontinence CARDIOVASCULAR: denies chest pain, syncope, palpitations, irregular heart rate, lightheadedness, peripheral edema RESPIRATORY: denies cough, shortness of breath, dyspnea with exertion, orthopnea , wheezing, stridor, hemoptysis GASTROINTESTINAL: endorses suprapubic abdominal pain. Denies abdominal distension, nausea, vomiting, diarrhea, constipation, melena, hematochezia GENITOURINARY: endorses L sided flank pain. Denies dysuria, frequency, urgency, hesitancy, hematuria, genital pain MUSCULOSKELETAL: denies myalgia, arthralgia, joint swelling, back pain, neck pain SKIN: denies rash, itching, pallor HEMATOLOGIC/IMMUNOLOGIC: denies easy bleeding, easy bruising, lymphadenopathy, frequent infections ENDOCRINE: denies unexplained weight gain, unexplained weight loss, heat intolerance, cold intolerance PSYCHIATRIC: denies anxiety, depression, suicidal or homicidal ideation, hallucinations. *Physical Exam - Vital Signs Last Vital Signs Temp Pulse Resp BP Pulse Ox 98.1 F 66 19 101/52 L 99 12/19/19 20:08 12/19/19 20:08 12/19/19 20:08 12/19/19 20:08 12/19/19 20:08 - Physical Exam 12/20/19 01:16 GENERAL: Awake, alert, and fully oriented, in no acute distress. HEAD: Normal with no signs of trauma. EYES: Pupils equal, round and reactive to light, extraocular movements intact, sclera anicteric, conjunctiva clear EARS, NOSE, THROAT: Ears normal, nares patent, oropharynx clear without exudates NECK: Normal range of motion, supple without lymphadenopathy, JVD, or masses. LUNGS: Breath sounds equal, clear to auscultation bilaterally. No wheezes, and no crackles. No accessory muscle use. HEART: Regular rate and rhythm, normal S1 and S2 without murmur, rub or gallop. ABDOMEN: Soft, suprapubic tenderness, non-distended, normoactive bowel sounds, negative guarding, negative rebound, no masses. PELVIC: fingertip os with muculopurulent discharge, negative CMT, negative adnexal tenderness MUSCULOSKELETAL: Normal range of motion at all joints. No bony deformities or tenderness. Mild L CVA tenderness. UPPER EXTREMITIES: 2+ pulses, warm, well-perfused. No cyanosis. No clubbing. Cap refill <2 seconds. No peripheral edema. LOWER EXTREMITIES: 2+ pulses, warm, well-perfused. No calf tenderness. No peripheral edema. NEUROLOGICAL: Cranial nerves II-XII intact. Normal speech. Normal gait. PSYCHIATRIC: Cooperative. Good eye contact. Appropriate mood and affect. SKIN: Warm, dry ED Treatment Course - LABORATORY CBC & Chemistry Diagram: 12/20/19 00:37 12/20/19 00:30 Medical Decision Making - Medical Decision Making 12/20/19 01:17 Concern for UTI v pyelonephritis v PID. - CBC, CMP - UA, UC, u preg - Ofirmev - GC/CS - empiric treatment for PID 12/20/19 01:43 U preg negative. UA with 2+ blood and 2+ leuks, albeit with too many epithelial cells. Unlikely for UTI to be causing symptoms. More likely PID. Will treat empirically. Will also recommend outpatient neurology for potential migraines. Discharge - Discharge Information Problems reviewed: Yes Clinical Impression/Diagnosis: PID (acute pelvic inflammatory disease) Condition: Stable Disposition: HOME - Admission No - Additional Discharge Information Prescriptions: Doxycycline Hyclate 100 mg PO BID 14 Days #28 capsule - Follow up/Referral Referrals: Antonio De Santiago MD [Staff Physician] - Jacques Coles MD [Staff Physician] - Raheel King MD [Staff Physician] - - Patient Discharge Instructions Patient Printed Discharge Instructions: DI for Pelvic Inflammatory Disease Additional Instructions: You were seen with lower abdominal pain. Your labs were unconcerning, however, your pelvic exam was concerning for possible pelvic inflammatory disease. This can be due to sexually transmitted infections, or STIs. Please take your doxycycline twice a day for the next 14 days. Follow up with your primary care doctor within one week. We have also referred you to a neurologist for your headaches, please make an appointment with them as well. Return to the ED if you develop worsening symptoms. - Post Discharge Activity
[2019-12-20] MEDS ORDERED: ACETAMINOPHEN 1000 MG/100 ML VIAL (NON FORMULARY) IVPB ONE (01:03)
--- NOTE | 2019-12-20 01:16 | PDOC ---
Attending Attestation - Resident Resident Name: Rikki Ovalles - ED Attending Attestation I have performed the following: I have examined & evaluated the patient, The case was reviewed & discussed with the resident, I agree w/resident's findings & plan, Exceptions are as noted
--- NOTE | 2019-12-20 01:19 | PDOC ---
Documentation entered by Bob Mims SCRIBE, acting as scribe for Muriel Arnold MD. Muriel Arnold MD: This documentation has been prepared by the Felicita mendoza Angel, SCRIBE, under my direction and personally reviewed by me in its entirety. I confirm that the documentation accurately reflects all work, treatment, procedures, and medical decision making performed by me. Attending Attestation - Resident Resident Name: Rikki Ovalles - ED Attending Attestation I have performed the following: I have examined & evaluated the patient, The case was reviewed & discussed with the resident, I agree w/resident's findings & plan, Exceptions are as noted - HPI HPI: 12/20/19 01:16 This 29-year-old female presents with complaint of intermittent headaches for the past 2 months and also intermittent suprapubic pain for the past several months - Physicial Exam PE: 12/20/19 01:17 wnwd 29 yo female p/e suprapubic pain and headaches head ncat eyes mamie eomi neck supple lungs cta b/l cvs [id number] abd no distention skin warm and dry neuro axox3,ambulatory, motor strength 5/5, b/l , no drift - Medical Decision Making 12/20/19 01:16 29-year-old female who had been admitted several months ago for pyelonephritis presents today with complaint of suprapubic pain that has been intermittent for several months and also intermittent right-sided headaches 12/20/19 01:21 Differential diagnosis includes pyelonephritis, UTI, PID, migraines CBC, test, UA pending 12/20/19 01:29 Dr Ovalles will do pelvic exam 12/20/19 02:00 test is negative UA does not show any evidence of UTI Patient has no focal neuro deficits and her headaches have been chronic She was supposed to follow-up with a neurologist and she will be encouraged to do so again CBC is unremarkable Patient will be given antibiotics for her PID 12/20/19 02:01
[2019-12-20 01:23] LABS: ALBUMIN 3.6 g/dl (3.4-5.0); BILIRUBIN,TOTAL 0.2 mg/dL (0.2-1); BLOOD UREA NITROGEN 19.6 mg/dL (7-18); CALCIUM 8.6 mg/dL (8.5-10.1); CREATININE 0.7 mg/dL (0.55-1.3); MAGNESIUM 2.2 mg/dL (1.8-2.4); PHOSPHOROUS 3.8 mg/dL (2.5-4.9); POTASSIUM 3.8 mmol/L (3.5-5.1); TOT PROT 6.9 g/dl (6.4-8.2)
[2019-12-20 01:36] LABS: EPI CELLS 29.7 /HPF (0-5/HPF); HYALINE CASTS 21 /lpf (0-8); URINE APPEARANCE CLOUDY; URINE BILIRUBIN NEGATIVE (NEGATIVE); URINE COLOR YELLOW; URINE GLUCOSE (UA) NEGATIVE (NEGATIVE); URINE KETONE NEGATIVE (NEGATIVE); URINE LEUK ESTERASE 2+ (NEGATIVE); URINE NITRITE NEGATIVE (NEGATIVE); URINE PROTEIN NEGATIVE (NEGATIVE); URINE RBC 3 /hpf (0-4); URINE UROBILINOGEN 0.2 mg/dL (0.2-1.0); URINE WBC 12 /hpf (0-5)
[2019-12-20 01:52] LABS: BASO % 0.4 % (0-2.0); EOS % 2.5 % (0-4.5); HEMATOCRIT 33.5 % (32.4-45.2); HEMOGLOBIN 11.1 GM/dL (10.7-15.3); LYMPH % 42.5 % (8-40); MCH 27.5 pg (25.7-33.7); MCHC 33.1 g/dl (32.0-36.0); MEAN CELL VOLUME 83.1 fl (80-96); MEAN PLT VOLUME 8.8 fl (7.5-11.1); MONO % 7.6 % (3.8-10.2); PLATELET COUNT 242 K/MM3 (134-434); RBC 4.03 M/mm3 (3.60-5.2); WHITE BLOOD COUNT 6.6 K/mm3 (4.0-10.0)
--- NOTE | 2019-12-20 01:56 | PDOC ---
*Physical Exam - Vital Signs Last Vital Signs Temp Pulse Resp BP Pulse Ox 98.1 F 66 19 101/52 L 99 12/19/19 20:08 12/19/19 20:08 12/19/19 20:08 12/19/19 20:08 12/19/19 20:08 ED Treatment Course - LABORATORY CBC & Chemistry Diagram: 12/20/19 00:37 12/20/19 00:30 - ADDITIONAL ORDERS Additional order review: Laboratory Results 12/20/19 12/20/19 12/20/19 01:08 01:08 00:30 Sodium 140 Potassium 3.8 Chloride 110 H Carbon Dioxide 24 Anion Gap 6 L BUN 19.6 H Creatinine 0.7 Est GFR (CKD-EPI)AfAm 135.70 Est GFR (CKD-EPI)NonAf 117.08 Random Glucose 92 Calcium 8.6 Phosphorus 3.8 Magnesium 2.2 Total Bilirubin 0.2 AST 17 ALT 25 Alkaline Phosphatase 61 Total Protein 6.9 Albumin 3.6 Urine Color Yellow Urine Appearance Cloudy Urine pH 6.0 Ur Specific [place] 1.026 Urine Protein Negative Urine Glucose (UA) Negative Urine Ketones Negative Urine Blood 2+ H Urine Nitrite Negative Urine Bilirubin Negative Urine Urobilinogen 0.2 Ur Leukocyte Esterase 2+ H Urine WBC (Auto) 12 Urine RBC (Auto) 3 Urine Casts (Auto) 21 U Epithel Cells (Auto) 29.7 Urine HCG, Qual Negative Discharge - Discharge Information Clinical Impression/Diagnosis: PID (acute pelvic inflammatory disease) Condition: Stable Disposition: HOME - Additional Discharge Information Prescriptions: Doxycycline Hyclate 100 mg PO BID 14 Days #28 capsule - Follow up/Referral Referrals: Jacques Coles MD [Staff Physician] - Antonio De Santiago MD [Staff Physician] - Raheel King MD [Staff Physician] - - Patient Discharge Instructions Patient Printed Discharge Instructions: DI for Pelvic Inflammatory Disease Additional Instructions: You were seen with lower abdominal pain. Your labs were unconcerning, however, your pelvic exam was concerning for possible pelvic inflammatory disease. This can be due to sexually transmitted infections, or STIs. Please take your doxycycline twice a day for the next 14 days. Follow up with your primary care doctor within one week. We have also referred you to a neurologist for your headaches, please make an appointment with them as well. Return to the ED if you develop worsening symptoms. - Post Discharge Activity
[2019-12-20 02:18] LABS: URINE BACTERIA 105.5 /hpf (NEGATIVE)
[2019-12-20] MEDS ORDERED: cefTRIAXone SODIUM 1 GM VIAL ONE (02:53)
== END 2019-12-20 03:02 | disposition home or self-care (01) ==
LOC: JER 19:43
DX: N73.8 Other specified female pelvic inflammatory diseases (principal); Z86.2 Personal history of diseases of the blood and blood-forming organs and certain disorders involving the immune mechanism; Z97.5 Presence of (intrauterine) contraceptive device
CPT/HCPCS: 36415; 80053; 81003; 83735; 84100; 84703; 85025; 87086; 87491; 87591; 96372; 99284-25

== ENCOUNTER 2020-10-15 20:41 | Emergency (ER) | payer OTHER ==
[2020-10-15 20:54] VITALS: BP 108/61; PULSE 78; TEMP 97.2; BMI 23.1
[2020-10-15 22:09] LABS: BASO % 0.8 % (0-2.0); EOS % 1.7 % (0-4.5); HEMOGLOBIN 11.4 GM/dL (10.7-15.3); LYMPH % 27.7 % (8-40); MCH 28.3 pg (25.7-33.7); MCHC 33.5 g/dl (32.0-36.0); MEAN CELL VOLUME 84.5 fl (80-96); MEAN PLT VOLUME 8.3 fl (7.5-11.1); MONO % 8.5 % (3.8-10.2); NEUT % 61.3 % (42.8-82.8); PLATELET COUNT 238 K/MM3 (134-434); RBC 4.03 M/mm3 (3.60-5.2); RDW 14.2 % (11.6-15.6); WHITE BLOOD COUNT 7.8 K/mm3 (4.0-10.0)
[2020-10-15 22:27] LABS: URINE APPEARANCE CLEAR; URINE BILIRUBIN NEGATIVE (NEGATIVE); URINE COLOR YELLOW; URINE GLUCOSE (UA) NEGATIVE (NEGATIVE); URINE KETONE NEGATIVE (NEGATIVE); URINE LEUK ESTERASE NEGATIVE (NEGATIVE); URINE NITRITE NEGATIVE (NEGATIVE); URINE PROTEIN NEGATIVE (NEGATIVE); URINE UROBILINOGEN 0.2 mg/dL (0.2-1.0)
== END 2020-10-15 23:54 | disposition home or self-care (01) ==
LOC: JER 20:41
DX: O20.8 Other hemorrhage in early pregnancy (principal); Z3A.01 Less than 8 weeks gestation of pregnancy
CPT/HCPCS: 36415; 76817-TC; 81003; 84702; 85025; 86850; 86900; 86901; 99284-25

== ENCOUNTER 2021-06-10 17:25 | Inpatient (IN) | payer OTHER ==
[2021-06-10 18:05] VITALS: BMI 26.9
[2021-06-10] MEDS ORDERED: BUTORPHANOL TARTRATE 1 MG/ML VIAL IVPB PRN (18:41)
[2021-06-10] MEDS ORDERED: WITCH HAZEL 50% (TUCKS) 40 PAD/JAR PAD TP PRN (18:43)
[2021-06-10] MEDS ORDERED: BENZOCAINE 20% 57 GM BOTTLE TP PRN (18:43)
[2021-06-10] MEDS ORDERED: BENZOCAINE 28 GM HEMORRHOIDAL OINTMENT TP PRN (18:43)
[2021-06-10] MEDS ORDERED: METHYLERGONOVINE MALEATE 0.2 MG/1 ML AMP IM PRN (18:43)
[2021-06-10] MEDS ORDERED: BISACODYL 10 MG SUPP.RECT RC PRN (18:43)
[2021-06-10] MEDS ORDERED: ELECTROLYTE-148 SOLN 1,000 ML IV SCH (18:45)
[2021-06-10] MEDS ORDERED: OXYTOCIN 20 UNITS in 0.9% NS 20 UNIT/1,000 ML INFUS.BAG IV ONE ×2 (19:34→21:23)
[2021-06-10 19:38] LABS: BASO % 0.1 % (0-2.0); EOS % 0.6 % (0-4.5); HEMATOCRIT 28.2 % (32.4-45.2); HEMOGLOBIN 9.4 GM/dL (10.7-15.3); LYMPH % 14.6 % (8-40); MCH 24.9 pg (25.7-33.7); MCHC 33.2 g/dl (32.0-36.0); MEAN PLT VOLUME 7.4 fl (7.5-11.1); MONO % 6.3 % (3.8-10.2); NEUT % 78.4 % (42.8-82.8); PLATELET COUNT 283 10^3/uL (134-434); RBC 3.77 M/mm3 (3.60-5.2); RDW 19.8 % (11.6-15.6); WHITE BLOOD COUNT 8.8 K/mm3 (4.0-10.0)
[2021-06-10 19:47] LABS: INR 0.98 (0.83-1.09); PROTHROMBIN TIME (PATIENT) 11.9 SEC (9.7-13.0)
[2021-06-10 19:50] LABS: ACTIVATED PTT 27.1 SECONDS (25.2-36.5)
[2021-06-10 19:59] LABS: CALCIUM 8.6 mg/dL (8.5-10.1)
[2021-06-10 20:00] LABS: BLOOD UREA NITROGEN 10.7 mg/dL (7-18)
[2021-06-10 20:03] LABS: CREATININE 0.5 mg/dL (0.55-1.3)
[2021-06-10] MEDS: OXYTOCIN 20 UNITS in 0.9% NS 20 UNIT/1,000 ML INFUS.BAG IV SCH (20:18)
[2021-06-10 21:51] LABS: CORD BASE EXCESS -11.4 mmol/L (0-2); CORD HCO3 18.9 mmHg (20-29); CORD PCO2 60.3 mmHg (30-78); CORD pH 7.113 (7.14-7.44)
[2021-06-10 21:54] LABS: CORD BASE EXCESS -9.8 mmol/L (0-2); CORD HCO3 17.3 mmHg (20-29); CORD pH 7.233 (7.14-7.44)
[2021-06-11] MEDS: IBUPROFEN 600 MG TABLET (FP) PO PRN ×2 (03:52→15:52)
[2021-06-11] MEDS: ACETAMINOPHEN 325 MG TABLET (FP) PO PRN ×2 (03:52→15:52)
[2021-06-11] MEDS: FERROUS SO4 325 MG TABLET (FP) PO SCH ×3 (07:43→16:41)
[2021-06-11 07:56] LABS: BASO % 0.2 % (0-2.0); EOS % 0.3 % (0-4.5); HEMATOCRIT 24.6 % (32.4-45.2); HEMOGLOBIN 8.2 GM/dL (10.7-15.3); MCH 25.6 pg (25.7-33.7); MCHC 33.3 g/dl (32.0-36.0); MEAN CELL VOLUME 76.9 fl (80-96); MEAN PLT VOLUME 7.9 fl (7.5-11.1); MONO % 7.9 % (3.8-10.2); NEUT % 75.6 % (42.8-82.8); PLATELET COUNT 240 10^3/uL (134-434); RBC 3.21 M/mm3 (3.60-5.2); RDW 19.3 % (11.6-15.6)
[2021-06-11] MEDS: PRENATAL VITAMINS W/ FOLIC ACID TABLET (FP) PO SCH (09:42)
[2021-06-11] MEDS: OXYTOCIN 20 UNITS in 0.9% NS 20 UNIT/1,000 ML INFUS.BAG IV SCH (19:38)
[2021-06-11] MEDS ORDERED: SENNOSIDES/DOCUSATE COMBO (SENNA PLUS) TABLET (UD) PO PRN (22:00)
[2021-06-12] MEDS: ACETAMINOPHEN 325 MG TABLET (FP) PO PRN ×2 (02:37→09:55)
[2021-06-12] MEDS: IBUPROFEN 600 MG TABLET (FP) PO PRN ×2 (02:37→09:55)
[2021-06-12] MEDS: FERROUS SO4 325 MG TABLET (FP) PO SCH (09:54)
[2021-06-12] MEDS: PRENATAL VITAMINS W/ FOLIC ACID TABLET (FP) PO SCH (09:54)
[2021-06-12 10:38] VITALS: BP 107/63; PULSE 73; TEMP 98
== END 2021-06-12 12:05 | disposition home or self-care (01) | DRG 560 ==
LOC: JLDR 17:25 → J3W 22:10
PROVIDERS: ADMIT Obstetrics & Gynecology; ATTEND Obstetrics & Gynecology
PROC: 10D07Z6 Extraction of Products of Conception, Vacuum, Via Natural or Artificial Opening (ICD-10-PCS; principal; 2021-06-10)
DX: O34.211 Maternal care for low transverse scar from previous cesarean delivery (principal); N85.8 Other specified noninflammatory disorders of uterus; O76 Abnormality in fetal heart rate and rhythm complicating labor and delivery; Z3A.39 39 weeks gestation of pregnancy; Z37.0 Single live birth
CPT/HCPCS: 36415; 36600; 59409; 80048; 82803; 85025; 85610; 85730; 86780; 86850; 86900; 86901; C9803; U0003; U0005

== ENCOUNTER 2021-09-26 13:53 | Emergency (ER) | payer OTHER ==
[2021-09-26 14:03] VITALS: BP 99/73; PULSE 90; TEMP 99.7; BMI 23.1
== END 2021-09-26 17:55 | disposition home or self-care (01) ==
LOC: JER 13:53
DX: J02.9 Acute pharyngitis, unspecified (principal); Z11.52 Encounter for screening for COVID-19
CPT/HCPCS: 87651; 87804; 99283-25; C9803; U0003; U0005

== ENCOUNTER 2022-11-05 12:22 | Emergency (ER) | payer OTHER ==
[2022-11-05 13:28] VITALS: BMI 29.2
[2022-11-05] MEDS ORDERED: ACETAMINOPHEN 500 MG TABLET (FP) PO ONE (14:27)
[2022-11-05] MEDS ORDERED: ACETAMINOPHEN 500 MG TABLET (FP) ONE (14:52)
[2022-11-05 15:25] VITALS: BP 105/67; PULSE 91; RESP 20; TEMP 100.4
== END 2022-11-05 16:38 | disposition home or self-care (01) ==
LOC: JER 12:22 → JCOVINFU 12:22 → JER 16:38
DX: J09.X2 Influenza due to identified novel influenza A virus with other respiratory manifestations (principal); R05.1 Acute cough; R09.81 Nasal congestion
CPT/HCPCS: 0241U-QW; 99283-25